=== PATIENT | male | born 1970 | race Caucasian/White ===

== ENCOUNTER 2017-08-08 15:08 | Observation (INO) | payer OTHER, SELFPAY ==
[~2017-08-08 15:08] MED LIST: ISOVUE-370 76%-LOCM 1 ML ONE
[2017-08-08 15:27] LABS: #Basophils 0.1 thou/uL (0.0-0.2); #Lymphocytes 2.1 thou/uL (1.20-3.40); #Monocytes 0.6 thou/uL (0.11-0.59); #Neutrophils 3.4 thou/uL (1.40-6.50); %Basophils 1.3 % (0.0-1.0); %Eosinophils 0.6 % (0.0-10.0); %Lymphocytes 34.1 % (21.0-51.0); %Monocytes 10.2 % (0.0-10.0); Hematocrit 50.7 % (42.0-52.0); Mean Platelet Volume 6.9 fL (7.4-10.4); Red Blood Cell (RBC) Count 5.64 mill/uL (4.70-6.10); White Blood Cell (WBC) Count 6.2 thou/uL (4.8-10.8)
[2017-08-08 15:50] LABS: ALT (SGPT) 26 U/L (8-55); AST (SGOT) 23 U/L (5-34); Alkaline Phosphatase 56 U/L (40-150); Anion Gap 16 mmol/L (10-20); BUN (Urea Nitrogen) 16 mg/dL (8.9-20.6); Bilirubin, Total 0.7 mg/dL (0.2-1.2); CK (CPK) 200 U/L (30-200); Calc. Creatinine Clearance 0 mL/min (70-130); Calcium 9.6 mg/dL (7.8-10.44); Carbon Dioxide 18 mmol/L (22-29); Chloride 108 mmol/L (98-107); Estimated GFR-MDRD 67; Globulin 3.1 g/dL (2.4-3.5); Protein, Total 7.4 g/dL (6.0-8.3)
[2017-08-08 15:54] LABS: Troponin I Less than 0.010 ng/mL (< 0.028)
--- NOTE | 2017-08-08 15:54 | RAD ---
AP VIEW CHEST 08/08/17 HISTORY: Chest pain. AP view chest obtained on 08/08/17. Comparison made to previous exam from 03/20/16. AP view chest is obtained. The lungs are well aerated. No evidence of active intrathoracic disease is seen. No evidence of effusions, pneumonia or pneumothorax seen. IMPRESSION: Unremarkable AP view chest. POS: [facility]
[2017-08-08 16:59] LABS: Bilirubin Negative (Negative); Blood, Urine Negative (Negative); Glucose, Urine (Dipstick) >=1000 mg/dL (Negative); Ketone, Urine Negative (Negative); Nitrite Negative (Negative); Protein, Urine (Dipstick) Negative (Neg-Trace); Urobilinogen 0.2 mg/dL (0.2-1.0)
[2017-08-08 17:04] LABS: Amphetamine Not Detected (NotDetected); Methadone Not Detected (NotDetected); Methamphetamine Not Detected (NotDetected)
[2017-08-08] MEDS ORDERED: Fentanyl 100 MCG/2 ML VIAL ONE (17:13)
--- NOTE | 2017-08-08 17:26 | CT ---
HISTORY: 47-year-old with history of chest pain radiating down arm. CONTRAST ENHANCED CTA CHEST: 08/08/17 2D and 3D reconstructed images performed on an independent 3D workstation. The lung parenchyma demonstrates patchy areas of densities in the posterior aspects bilaterally alaina tible with areas of patchy pneumonia in both lower lobes. No definite evidence of other pulmonary parenchymal masses seen. The mediastinum is unremarkable. The thoracic and abdominal aortas are unremarkable. No evidence of aortic dissection or aneurysm seen. T he SMA, celiac, JORY and renal arteries are patent. The mediastinum is unremarkable. The liver, spleen, gallbladder, pancreas, adrenal glands and kidneys are unremarkable. IMPRESSION: Patchy areas of bilateral lower lobe densities concerning for patchy areas of subtle bilateral lower lobe pneumonia. POS: [facility]
[2017-08-08 19:41] LABS: Troponin I 0.016 ng/mL (< 0.028)
[2017-08-08] MEDS ORDERED: HYDROcodone/Acetaminophen 5/325 mg Tablet PO PRN ×3 (20:20→20:26)
[2017-08-08] MEDS ORDERED: Acetaminophen 325 MG TAB PO PRN ×2 (20:20→20:26)
[2017-08-08] MEDS ORDERED: Aspirin/APAP/Caffeine Tab (Excedrin Migraine) PO PRN (20:26)
[2017-08-08] MEDS ORDERED: HumaLOG 300 UNITS/3 ML VIAL SC PRN (20:26)
[2017-08-08] MEDS ORDERED: Ondansetron ODT 4 MG TAB PO PRN (20:26)
[2017-08-08] MEDS ORDERED: HYDROcodone/Acetaminophen 10/325 mg Tablet PO PRN (20:26)
[2017-08-08] MEDS ORDERED: Zolpidem Tartrate 5 MG TAB PO PRN (20:26)
[2017-08-08] MEDS ORDERED: Dextrose 50% Abboject 50 ML SYRINGE SLOW IVP PRN (20:26)
[2017-08-08] MEDS ORDERED: Dextrose 5% in Water 1,000 ML IV PRN (20:26)
[2017-08-08] MEDS ORDERED: Enoxaparin Sodium 40 MG/0.4 ML SYRINGE SC SCH (20:30)
[2017-08-08] MEDS: Sodium Chloride 0.9% 1,000 ML IV SCH (20:54)
[2017-08-08] MEDS: Famotidine 20 MG TAB PO SCH (20:57)
[2017-08-08] MEDS: Nitroglycerin 2% Ointment 1 INCH/1 GM Packet TOP SCH (20:58)
[2017-08-08] MEDS: Metoprolol Tartrate 25 MG TAB PO SCH (20:58)
[2017-08-08] MEDS ORDERED: ADMIXTURE FEE SC SCH (21:00)
[2017-08-08] MEDS ORDERED: INSULIN DETEMIR SC SCH (21:00)
[2017-08-08] MEDS ORDERED: Atorvastatin Calcium 20 MG TAB PO SCH (21:00)
[2017-08-08 21:10] VITALS: BMI 40.2
--- NOTE | 2017-08-08 21:23 | HP ---
DATE OF ADMISSION: 08/08/2017 PRIMARY CARE PHYSICIAN: Dr. Fraser. TIME OF SERVICE: 1929. CHIEF COMPLAINT: Chest pain. HISTORY OF PRESENT ILLNESS: Mr. Stoner is a very pleasant 47-year-old white male with history of hyp ertension, diabetes, hyperlipidemia, obesity, hypertriglyceridemia, gout, and nephrolithiasis, who pr esents to the emergency department with 2-3 days of intermittent chest pain. States that just to the left of midline and over the left side of his chest, and describes as a pressure sensation or tight sensation, that ends with sharp shooting pain down his left arm. He has had a headache similar to mi graines in the past. Pain has been up and down with really no known exacerbating or alleviating fact ors initially. When further questioned, he said that he has been having increased pain when sitting down to eat with nausea and after eating. Denies any nausea or vomiting itself regularly, but he has had some sweats and nausea was associated directly with the chest pain. In the ER, he had negative labs and negative EKG. Lipase was ordered and was negative. He has had no known fevers and no known sick contacts. Denies any cough or sputum production. No shortness of breath normally. PAST MEDICAL HISTORY: 1. Hypertension. 2. Hyperlipidemia, cholesterol, and triglycerides. 3. Diabetes mellitus type 2, insulin-dependent. The patient was on Toujeo for the last several niall hs and was recently i.e., yesterday switched from Toujeo to Victoza plus Tresiba. 4. Obesity. 5. Nephrolithiasis. 6. Gout. PAST SURGICAL HISTORY: 1. Left knee repair, ligament 2006. 2. Eye flutter repair. 3. Bicep tendon repair [place] [address] Gonsalez. 4. He had a Meckel's diverticulum removal by Dr. Tinajero in 03/2015. HOME MEDICATIONS: 1. Atenolol 50 mg p.o. b.i.d. 2. Lipitor 20 mg p.o. at bedtime. 3. Fenofibrate 134 mg p.o. q.p.m. 4. Uloric 40 mg p.o. daily. 5. Prilosec 10 mg daily. 6. Motrin 800 mg p.o. t.i.d. p.r.n. 7. Forxiga 10 mg p.o. daily. 8. Ambien 10 mg p.o. at bedtime. 9. Victoza 0.6 mg subcutaneous daily supposed to go to 1.2 mg subcutaneous on 08/14/2017. 10. Tresiba 26 units subcutaneous at bedtime. ALLERGIES: NKDA. FAMILY HISTORY: Include hypertension. No premature coronary artery disease. No history of clotting or bleeding disorders. SOCIAL HISTORY: Negative for habits x3. He has never smoked. 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 No sick co ntacts. REVIEW OF SYSTEMS: A 10-point review of systems was performed, negative for all other systems except stated as per HPI. PHYSICAL EXAMINATION: VITAL SIGNS: Temperature 98.1, pulse 82, blood pressure is 126/97, respiratory rate 18, satting 98% on room air. GENERAL: He is awake. He is alert. He is oriented x3. He is well-developed, well-nourished white male, appears to be in no acute distress. HEENT: Normocephalic, atraumatic. Pupils equal and reactive bilaterally, mucous membranes are moist . There was no visible lesions or thrush. NECK: Supple with no lymphadenopathy, JVD, or thyromegaly. LUNGS: Clear. No wheezes, no rales or rhonchi. I do not hear any crackles. No murmurs. CARDIOVASCULAR: Normal S1, S2. No S3 or S4. No murmurs or rubs. ABDOMEN: Obese. It is nontender, distended but not tympanitic and not tight. There is no rebound, rigidity, or guarding. There is normoactive bowel sounds present in all 4 quadrants. EXTREMITIES: Shows no cyanosis, clubbing, no edema. SKIN: Warm, moist, and well perfused without rashes or lesions. MUSCULOSKELETAL: Normal to inspection. Large joints appear normal, he has no inflammation, no redne ss, no heat, and no palpable effusions. NEUROLOGIC: Cranial nerves II-XII are grossly intact. He has normal speech pattern, 5/5 strength. He has no focal, neurologic deficits. LABORATORY EVALUATION: CMP is normal. Creatinine 1.17, sodium 138, potassium 4.1. Liver functions normal. White count 6.2, hemoglobin 17.4, hematocrit 50.7, and platelet count of 255. CK-MB normal 2.4 and troponin I is less than 0.010. Recent labs from his outpatient showed triglycerides to be 16 00, hemoglobin A1c was 10, and total cholesterol was 235. I do not see the LDL. His lipase today wa s 28. RADIOGRAPHIC STUDIES: CT dissection protocol showed patchy bibasilar opacities consistent with edema or atypical early pneumonia. Chest x-ray showed no acute cardiopulmonary disease. ASSESSMENT AND PLAN: 1. Chest pain: We will rule out for acute cardiac disease. We will watch him on telemetry, serial cardiac biomarkers, nitro paste, beta ewelina, oxygen, if negative may consider proceeding with a str ess test in the morning. 2. Abnormal CT scan, patient has almost ground glass type opacity present in the bases. He has no c ough, no shortness of breath or fevers. He has had some sweats. He has not had any sick contacts. We would watch for signs of developing infection. 3. Hypertension: The patient is on atenolol, twice a day. At this time, we will hold his atenolol in favor of using metoprolol for rate control. We will have nitro paste on, it should be able to con trol blood pressure fine. 4. Diabetes mellitus, type 2. He is on Tresiba to substitute for Levemir while he is here, we will continue the Victoza if he has it, we will get a.c. and at bedtime Accu-Cheks while he is eating and use a mild sliding scale Humalog for correction. 5. Obesity. 6. Hyperlipidemia, cholesterol, and triglycerides on Lipitor and fenofibrate and we will continue. 7. History of nephrolithiasis. None currently. 8. History of gout. His uric acid on his outpatient testing a few days ago was normal. He has no f lare. Place the patient in observation with telemetry. We will watch him overnight. If everything is nega tive, likely he will be able to go home in the morning.
[2017-08-08 22:41] LABS: Troponin I Less than 0.010 ng/mL (< 0.028)
[2017-08-09 05:24] LABS: #Basophils 0.1 thou/uL (0.0-0.2); #Eosinphils 0.1 thou/uL (0.0-0.7); #Lymphocytes 2.7 thou/uL (1.20-3.40); #Monocytes 0.7 thou/uL (0.11-0.59); #Neutrophils 2.5 thou/uL (1.40-6.50); %Basophils 1.1 % (0.0-1.0); %Eosinophils 2.2 % (0.0-10.0); %Lymphocytes 44.4 % (21.0-51.0); %Monocytes 11.5 % (0.0-10.0); Hematocrit 46.2 % (42.0-52.0); Mean Platelet Volume 6.8 fL (7.4-10.4); Red Blood Cell (RBC) Count 5.07 mill/uL (4.70-6.10)
[2017-08-09 05:45] LABS: Anion Gap 14 mmol/L (10-20); BUN (Urea Nitrogen) 15 mg/dL (8.9-20.6); Calc. Creatinine Clearance 162 mL/min (70-130); Calcium 8.9 mg/dL (7.8-10.44); Carbon Dioxide 20 mmol/L (22-29); Chloride 107 mmol/L (98-107); Estimated GFR-MDRD 72; Magnesium 2.7 mg/dL (1.6-2.6)
[2017-08-09 05:49] LABS: Troponin I Less than 0.010 ng/mL (< 0.028)
[2017-08-09] MEDS: Nitroglycerin 2% Ointment 1 INCH/1 GM Packet TOP SCH (06:19)
[2017-08-09] MEDS: Sodium Chloride 0.9% 1,000 ML IV SCH (06:20)
[2017-08-09] MEDS ORDERED: Nitroglycerin 0.4 MG TAB (25 Tab Bottle) PO PRN (07:40)
[2017-08-09] MEDS ORDERED: Fenofibrate Nanocrystallized 145 MG TAB PO SCH (09:00)
[2017-08-09] MEDS ORDERED: ULORIC PO SCH (09:00)
[2017-08-09] MEDS ORDERED: FLU VACC QS2017-18 36 mo. & older 0.5 ML SYRINGE IM ONE (09:00)
[2017-08-09] MEDS ORDERED: Aspirin 325 mg Enteric Coated Tablet PO SCH (09:00)
[2017-08-09] MEDS ORDERED: Enoxaparin Sodium 40 MG/0.4 ML SYRINGE SC SCH (09:00)
[2017-08-09] MEDS: Metoprolol Tartrate 25 MG TAB PO SCH (11:43)
[2017-08-09] MEDS: Famotidine 20 MG TAB PO SCH (11:43)
--- NOTE | 2017-08-09 12:23 | RAD ---
CHEST 2 VIEWS: Date: 08/09/17 HISTORY: Pneumonia. COMPARISON: Chest 1 view dated 08/08/17. FINDINGS: The lungs are clear. No pneumothorax or effusion. Cardiac silhouette and mediastinal contours within normal limits. IMPRESSION: No acute intrathoracic abnormality. POS: [facility]
[2017-08-09 13:12] LABS: Troponin I Less than 0.010 ng/mL (< 0.028)
--- NOTE | 2017-08-09 14:14 | NM ---
NUCLEAR MEDICINE STRESS ONLY: HISTORY: Chest pain. Diabetes. Hypertension. Dyslipidemia. COMPARISON: None. TECHNIQUE: A stress only exam was performed after the intravenous administration of 30 and 9 mCi technetium-99m sestamibi. FINDINGS: There is normal wall motion. Normal uptake of radiotracer. IMPRESSION: Normal stress only exam with ejection fraction of 52%. POS: [facility]
[2017-08-09 16:22] VITALS: BP 133/80; TEMP 98.5
--- NOTE | 2017-08-10 09:46 | DIS ---
DATE OF DISCHARGE: 08/09/2017 DISCHARGE DISPOSITION: Home. FOLLOWUP: Follow up with primary care physician, Dr. Pastor, in 1 week. Follow up with Cardiology Clinic in 1 week. He was advised to call the office and schedule an appointment with one of the card iologists with Dr. Silverman's group. ALLERGIES: No known drug allergies. DISCHARGE MEDICATIONS: Aspirin 81 mg daily, Excedrin Migraine as needed, Tylenol as needed, atenolol 50 mg b.i.d., Lipitor 40 mg daily, Farxiga 10 mg daily, Uloric 40 mg daily, fenofibrate 134 mg daily , insulin degludec 26 units at bedtime, probiotic 1 tablet daily, Victoza 0.6 mg daily, sublingual ni troglycerin as needed, tramadol as needed, trazodone 100 mg at bedtime, Ambien 10 mg at bedtime. INPATIENT CONSULTANTS: None. The patient was seen and examined on the day of discharge. BRIEF HOSPITAL COURSE: Patient is a 47-year-old male with hypertension; diabetes mellitus, type 2; d yslipidemia; and morbid obesity with a BMI of 40.2; presented to the hospital with chest discomfort. Please refer to the history and physical dated 08/08/[address] Canchola for further details. The patient was admitted to the hospital with a diagnosis of chest discomfort, rule out acute coronar y syndrome. His serial cardiac enzymes were negative. He underwent exercise Cardiolite stress test that was negative for reversible ischemia. Ejection fraction was in the normal range without any wal l motion abnormality. He was advised to follow up with Cardiology as outpatient if he has recurrence of chest pain. He was given a prescription for sublingual nitroglycerin. Lifestyle modification wa s extensively emphasized. He will also benefit from sleep study as outpatient. FINAL DIAGNOSES: 1. Chest discomfort, acute coronary artery syndrome ruled out. 2. Negative Cardiolite stress test. 3. Questionable ground-glass opacity at the lung bases on the CT scan. Primary care physician is ad vised to follow. 4. Hypertension. 5. Diabetes mellitus, type 2. 6. Dyslipidemia. 7. Obesity. 8. Gout. 9. History of nephrolithiasis. 10. Chronic kidney disease, stage 2. 11. Morbid obesity with a BMI 40.2. Plan of care was discussed with the patient and the family in detail. They stated understanding.
== END 2017-08-09 18:50 | disposition home or self-care (01) ==
LOC: ERS 15:08 → 2SW 18:58
PROVIDERS: ADMIT Internal Medicine Infectious Disease; ATTEND Internal Medicine Infectious Disease
DX: R07.89 Other chest pain (principal); E11.22 Type 2 diabetes mellitus with diabetic chronic kidney disease; I12.9 Hypertensive chronic kidney disease with stage 1 through stage 4 chronic kidney disease, or unspecified chronic kidney disease; N18.2 Chronic kidney disease, stage 2 (mild); E78.5 Hyperlipidemia, unspecified; M10.9 Gout, unspecified; N20.0 Calculus of kidney; R91.8 Other nonspecific abnormal finding of lung field; E66.01 Morbid (severe) obesity due to excess calories; Z68.41 Body mass index [BMI] 40.0-44.9, adult; Z79.899 Other long term (current) drug therapy; Z98.890 Other specified postprocedural states
CPT/HCPCS: 36415; 36416; 71010; 71020; 71275; 78452; 80048; 80053; 80306; 81003; 82553; 83690; 83735; 84484; 85025; 93005; 93017; 94760; 96361; 96372; 96374; A9500; G0378; J1650; J1815; J3010

== ENCOUNTER 2018-03-13 14:29 | Emergency (ER) | payer BC, OTHER, SELFPAY ==
--- NOTE | 2018-03-13 15:43 | RAD ---
TWO VIEWS RIGHT TIBIA AND FIBULA: DATE: 03/13/18. HISTORY: Distal right lower extremity pain. FINDINGS: There is no evidence of a fracture or dislocation involving the right tibia or fibula. On the fronta l projection, there is a small lucency seen overlying the lateral subcutaneous tissues at the distal fibular diaphysis. Lucency related to subcutaneous gas could not be entirely excluded, but this coul d be artifactual. Normal findings. IMPRESSION: 1. No acute osseous abnormality of the right tibia or fibula. 2. Lucency overlying the subcutaneous soft tissues lateral to the distal right fibula. This may be artifactual, although focus of subcutaneous gas cannot be excluded, of uncertain etiology. POS: [facility]
[2018-03-13 16:36] LABS: #Basophils 0.1 thou/uL (0.0-0.2); #Eosinphils 0.1 thou/uL (0.0-0.7); #Lymphocytes 2.1 thou/uL (1.20-3.40); #Monocytes 0.7 thou/uL (0.11-0.59); #Neutrophils 3.6 thou/uL (1.40-6.50); %Basophils 1.5 % (0.0-1.0); %Eosinophils 1.3 % (0.0-10.0); %Lymphocytes 32.1 % (21.0-51.0); %Monocytes 10.3 % (0.0-10.0); %Neutrophils 54.8 % (42.0-75.0); Hemoglobin 17.1 g/dL (14.0-18.0); Mean Corpuscular HGB CONC 34.3 g/dL (32.0-36.0); Mean Corpuscular Hemoglobin 31.5 pg (27.0-31.0); Mean Corpuscular Volume 91.8 fL (78.0-98.0); Mean Platelet Volume 6.5 fL (7.4-10.4); Platelet Count 271 thou/uL (130-400); RBC Distribution Width 12.9 % (11.5-14.5); Red Blood Cell (RBC) Count 5.43 mill/uL (4.70-6.10); White Blood Cell (WBC) Count 6.5 thou/uL (4.8-10.8)
[2018-03-13 16:57] LABS: ALT (SGPT) 22 U/L (8-55); AST (SGOT) 19 U/L (5-34); Albumin 4.6 g/dL (3.5-5.0); Alkaline Phosphatase 51 U/L (40-150); Anion Gap 14 mmol/L (10-20); BUN (Urea Nitrogen) 14 mg/dL (8.9-20.6); Bilirubin, Total 0.5 mg/dL (0.2-1.2); Calc. Creatinine Clearance 0 mL/min (70-130); Calcium 9.6 mg/dL (7.8-10.44); Carbon Dioxide 18 mmol/L (22-29); Chloride 108 mmol/L (98-107); Estimated GFR-MDRD 59; Globulin 2.8 g/dL (2.4-3.5); Glucose 122 mg/dL (70-105); Potassium 4.2 mmol/L (3.5-5.1); Protein, Total 7.4 g/dL (6.0-8.3); Sodium 136 mmol/L (136-145)
[2018-03-13] MEDS ORDERED: traMADol HCl 50 MG TAB ONE (18:05)
[2018-03-13] MEDS ORDERED: Gabapentin 300 MG CAP PO SCH (18:30)
[2018-03-13] MEDS ORDERED: Bacitracin Zinc 1 Packet ONE (18:46)
== END 2018-03-13 18:55 | disposition home or self-care (01) ==
LOC: ERS 14:29
DX: M79.604 Pain in right leg (principal); E78.5 Hyperlipidemia, unspecified; I10 Essential (primary) hypertension; E11.9 Type 2 diabetes mellitus without complications; M06.9 Rheumatoid arthritis, unspecified; F32.9 Major depressive disorder, single episode, unspecified; F41.9 Anxiety disorder, unspecified; E66.9 Obesity, unspecified; Z87.442 Personal history of urinary calculi
CPT/HCPCS: 36415; 80053; 83605; 85025; 87040; 87070; 87205

== ENCOUNTER 2018-03-18 13:46 | Outpatient (CLI) | payer BC ==
[2018-03-18] MEDS ORDERED: Sodium Chloride 0.9% 15 ML NEB ONE (16:36)
[2018-03-18] MEDS ORDERED: Lidocaine 2% Jelly 5 ML TUBE ONE (16:36)
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
== END 2018-03-18 13:47 | disposition home or self-care (01) ==
LOC: WCC 13:46
PROVIDERS: ATTEND Family Medicine
DX: S81.801A Unspecified open wound, right lower leg, initial encounter (principal); E11.9 Type 2 diabetes mellitus without complications; N20.0 Calculus of kidney; M10.9 Gout, unspecified; I10 Essential (primary) hypertension; Z98.890 Other specified postprocedural states
CPT/HCPCS: 11042; 36416; 99203; A4218; G0463

== ENCOUNTER 2018-03-25 14:41 | Outpatient (CLI) | payer BC ==
[~2018-03-25 14:41] MED LIST changes: -ISOVUE-370 76%-LOCM 1 ML ONE; +Lidocaine 2% Jelly 5 ML TUBE ONE; +Sodium Chloride 0.9% 15 ML NEB ONE
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
== END 2018-03-25 14:42 | disposition home or self-care (01) ==
LOC: WCC 14:41
PROVIDERS: ATTEND Family Medicine
DX: T81.89XD Other complications of procedures, not elsewhere classified, subsequent encounter (principal); E11.9 Type 2 diabetes mellitus without complications; M10.9 Gout, unspecified; K80.20 Calculus of gallbladder without cholecystitis without obstruction; I10 Essential (primary) hypertension
CPT/HCPCS: 11042; A4218

== ENCOUNTER 2018-03-25 16:15 | Outpatient (CLI) | payer BC ==
--- NOTE | 2018-03-25 17:08 | RAD ---
RIGHT ANKLE THREE VIEWS: 03/25/18 HISTORY: Right ankle pain. FINDINGS: Ankle mortise and talar dome are intact. Moderate osteophytosis. Pes planus on the lateral view. Deg enerative changes of the hindfoot and midfoot are visible. Plantar enthesophyte at the inferior aspec t of the calcaneus. IMPRESSION: Osteoarthritic changes of the ankle and hindfoot are pronounced for the patient's age. Plantar heel spur. POS: [facility]
== END 2018-03-25 16:16 | disposition home or self-care (01) ==
LOC: RAD 16:15
PROVIDERS: ATTEND Family Medicine
DX: M25.471 Effusion, right ankle (principal); M25.571 Pain in right ankle and joints of right foot; M19.071 Primary osteoarthritis, right ankle and foot; M77.31 Calcaneal spur, right foot

== ENCOUNTER 2019-03-31 12:20 | Observation (INO) | payer BC, SELFPAY ==
[2019-03-31] MEDS ORDERED: Morphine 4 MG/ML VIAL ONE (12:50)
[2019-03-31] MEDS ORDERED: Ondansetron PF 4 MG/2 ML Vial ONE (12:50)
[2019-03-31 13:03] LABS: #Eosinphils 0.1 thou/uL (0.0-0.7); #Lymphocytes 1.9 thou/uL (1.20-3.40); #Monocytes 0.8 thou/uL (0.11-0.59); #Neutrophils 4.2 thou/uL (1.40-6.50); %Basophils 0.7 % (0.0-1.0); %Eosinophils 1.3 % (0.0-10.0); %Lymphocytes 26.7 % (21.0-51.0); %Monocytes 11.1 % (0.0-10.0); %Neutrophils 60.1 % (42.0-75.0); Hemoglobin 15.6 g/dL (14.0-18.0); Mean Corpuscular HGB CONC 34.2 g/dL (32.0-36.0); Mean Corpuscular Hemoglobin 31.6 pg (27.0-31.0); Mean Corpuscular Volume 92.4 fL (78.0-98.0); Mean Platelet Volume 7.2 fL (7.4-10.4); Platelet Count 241 thou/uL (130-400); RBC Distribution Width 12.7 % (11.5-14.5); Red Blood Cell (RBC) Count 4.96 mill/uL (4.70-6.10)
[2019-03-31 13:27] LABS: ALT (SGPT) 26 U/L (8-55); AST (SGOT) 20 U/L (5-34); Albumin 4.2 g/dL (3.5-5.0); Alkaline Phosphatase 46 U/L (40-150); Anion Gap 12 mmol/L (10-20); BUN (Urea Nitrogen) 16 mg/dL (8.9-20.6); Bilirubin, Total 0.6 mg/dL (0.2-1.2); Calc. Creatinine Clearance 0 mL/min (70-130); Calcium 9.7 mg/dL (7.8-10.44); Carbon Dioxide 21 mmol/L (22-29); Chloride 109 mmol/L (98-107); Estimated GFR-MDRD 79; Globulin 2.4 g/dL (2.4-3.5); Glucose 137 mg/dL (70-105); Lipase 24 U/L (8-78); Potassium 3.9 mmol/L (3.5-5.1); Protein, Total 6.6 g/dL (6.0-8.3); Sodium 138 mmol/L (136-145)
[2019-03-31] MEDS ORDERED: Fentanyl 100 MCG/2 ML VIAL ONE (13:32)
--- NOTE | 2019-03-31 13:48 | RAD ---
CHEST ONE VIEW: 03/31/19 HISTORY: Chest pain. Headache. COMPARISON: 08/09/17. FINDINGS: The cardiac silhouette is magnified by projection. Pulmonary vasculature accentuated by shallow inspi ration. Mediastinum is midline. No confluent air space consolidation or evidence of pneumothorax. Car diac monitor leads overlie the chest. IMPRESSION: No active cardiopulmonary abnormalities are demonstrated. POS: [facility]
--- NOTE | 2019-03-31 14:13 | CT ---
CT HEAD NONCONTRAST: HISTORY: Headache. FINDINGS: No comparison. There is no evidence of acute intracranial hemorrhage or infarct. The ventricles kourtney ear normal in size, shape, and position. There is no mass effect or shift of midline structures. La rge mucous retention cyst predominantly fills the partially visualized left maxillary sinus. Other v isualized paranasal sinuses remain well aerated. IMPRESSION: No acute intracranial abnormalities are demonstrated. POS: [facility]
[2019-03-31 15:05] LABS: Color Of CSF Supernatant COLORLESS (Colorless); Unspun CSF Color COLORLESS (Colorless)
[2019-03-31] MEDS ORDERED: diphenhydrAMINE 50 MG/ML VIAL ONE (15:05)
[2019-03-31] MEDS ORDERED: Metoclopramide HCl 10 MG/2 ML VIAL ONE (15:05)
[2019-03-31 15:07] LABS: CSF Source CSF; Clarity Clear (Clear); RBC Count - Manual 12 /cumm (None Seen); Tube # 2; Tube # 4; WBC/NonHematics Count - Manual 1 /cumm (0-5)
[2019-03-31 15:19] LABS: CSF Source CSF; Clarity Hazy (Clear); Tube # 1; WBC/NonHematics Count - Manual 0 /cumm (0-5)
[2019-03-31 15:20] LABS: CSF, Glucose 78 mg/dl (40-70); CSF, Protein 62 mg/dL (15-40); RBC Count - Manual 307 /cumm (None Seen)
[2019-03-31 16:14] LABS: Troponin I 0.014 ng/mL (< 0.028)
[2019-03-31] MEDS ORDERED: Ondansetron ODT 4 MG TAB SL PRN (18:07)
[2019-03-31] MEDS ORDERED: Ondansetron PF 4 MG/2 ML Vial IVP PRN (18:07)
[2019-03-31 18:09] VITALS: BMI 38.6
[2019-03-31] MEDS ORDERED: Acetaminophen 325 MG TAB PO PRN (18:24)
[2019-03-31] MEDS ORDERED: Ondansetron ODT 4 MG TAB PO PRN (18:24)
[2019-03-31 19:06] LABS: Troponin I Less than 0.010 ng/mL (< 0.028)
--- NOTE | 2019-03-31 19:12 | PDOC.FPRHP ---
- History of Present Illness Chief Complaint: Headache History of Present Illness: 49 yo M w/PHx of HTN and DM2, now off of meds dt weight loss, here with complaint of progressively worsening headache that started 2-3 weeks ago. For the past 2 days pain has been 10/10. Pain involves his entire head. He has no hx of similar symptoms in the past. He also notes that for the same period of time his BP has been spiking to over 200/100. He was seen in clinic of PCP in [place] 2 days ago and started on Amlodipine/Benazepril. Today due to continuation of his headache with no relief and continued elevated BP he presented to the ED after taking 0.1 of a family member's clonidine. PCP Out of Town in [place]. Pt does not remember name. ED Course: In ED CT head was negative. Pt was given 8mg Morphine and 100mcg Fentanyl without improvement. LP performed in ED, initial results reassuring - Allergies/Adverse Reactions Allergies Allergy/AdvReac Type Severity Reaction Status Date / Time No Known Drug Allergies Allergy Verified 03/31/19 21:36 - Home Medications Medication Instructions Recorded Confirmed Type Febuxostat [Uloric] 40 mg PO Q2DAYS 12/07/14 03/31/19 History traZODone HCl [Trazodone HCl] 100 mg PO HS 08/08/17 03/31/19 History Aspirin [Aspirin EC] 81 mg PO DAILY #30 tablet. 08/09/17 03/31/19 Rx Amlodipine Besylate/Benazepril 1 cap PO DAILY 03/31/19 03/31/19 History [amLODIPine Besylate/Benazepril] Omeprazole Magnesium [Prilosec] 10 mg PO DAILY 03/31/19 03/31/19 History Rosuvastatin [Crestor] 10 mg PO DAILY 03/31/19 03/31/19 History Temazepam [Restoril] 15 mg PO HS 03/31/19 03/31/19 History - History PMHx: DM2 HTN HLD PSHx: Multiple ortho surgeries FHx: HTN Social: Denies etoh, tobacco, recreational drugs - Review of Systems General: denies: fever/chills, weight/appetite/sleep changes, night sweats Eyes: denies: eye pain, vision changes ENT: denies: nasal congestion, rhinorrhea Respiratory: denies: congestion, shortness of breath, exercise intolerance Cardiovascular: reports: chest pain. denies: palpitation, edema Gastrointestinal: denies: nausea, vomiting, diarrhea, constipation, abdominal pain Skin: denies: rashes, lesions Musculoskeletal: denies: pain, tenderness Neurological: reports: other (complains of headache). denies: numbness, syncope , seizure, weakness Psychological: denies: anxiety, depression - Vital signs BP: 136/83 HR: 62 RR: 18 Tmax: 98.4 Pox: 09% on RA Wt: 132 kg - Physical Exam Constitutional: NAD, awake, alert and oriented, well developed HEENT: normocephalic and atraumatic, EOMI, no scleral icterus, grossly normal vision, grossly normal hearing, MMM Neck: supple, trachea midline, no bruits Chest: no-tender to palpation, no lesions Heart: RRR, normal S1/S2, no murmurs/rubs/gallops, no edema Lungs: CTAB, no respiratory distress, good air movement, no rales/rhonchi, no wheezing Abdomen: soft, non-tender, bowel sounds present Musculoskeletal: normal structure, normal tone, ROM grossly normal Neurological: no focal deficit, CN II-XII intact, normal sensation, DTRs 2+ Skin: no rash/lesions, good turgor Heme/Lymphatic: no unusual bruising or bleeding Psychiatric: normal mood and affect, good judgment and insight FMR H&P: Results - Labs Result Diagrams: 03/31/19 12:46 03/31/19 12:46 Lab results: WBC 7.0 thou/uL (4.8-10.8) 03/31/19 12:46 Hgb 15.6 g/dL (14.0-18.0) 03/31/19 12:46 Hct 45.8 % (42.0-52.0) 03/31/19 12:46 MCV 92.4 fL (78.0-98.0) 03/31/19 12:46 Plt Count 241 thou/uL (130-400) 03/31/19 12:46 Neutrophils % 60.1 % (42.0-75.0) 03/31/19 12:46 Sodium 138 mmol/L (136-145) 03/31/19 12:46 Potassium 3.9 mmol/L (3.5-5.1) 03/31/19 12:46 Chloride 109 mmol/L (98-107) H 03/31/19 12:46 Carbon Dioxide 21 mmol/L (22-29) L 03/31/19 12:46 BUN 16 mg/dL (8.9-20.6) 03/31/19 12:46 Creatinine 1.00 mg/dL (0.7-1.3) 03/31/19 12:46 Glucose 137 mg/dL (70-105) H 03/31/19 12:46 Calcium 9.7 mg/dL (7.8-10.44) 03/31/19 12:46 Total Bilirubin 0.6 mg/dL (0.2-1.2) 03/31/19 12:46 AST 20 U/L (5-34) 03/31/19 12:46 ALT 26 U/L (8-55) 03/31/19 12:46 Alkaline Phosphatase 46 U/L (40-150) 03/31/19 12:46 B-Natriuretic Peptide 48.2 pg/mL (0-100) 03/31/19 12:46 Serum Total Protein 6.6 g/dL (6.0-8.3) 03/31/19 12:46 Albumin 4.2 g/dL (3.5-5.0) 03/31/19 12:46 Lipase 24 U/L (8-78) 03/31/19 12:46 - EKG Interpretation EKG: NSR, pulse 60, No ST or T wave changes - Radiology Interpretation CT scan - head Status: report reviewed by me (No acute process) FMR H&P: A/P - Problem List (1) Hypertensive urgency Current Visit: Yes Status: Acute Code(s): I16.0 - HYPERTENSIVE URGENCY (2) Headache Current Visit: Yes Status: Acute Code(s): R51 - HEADACHE Qualifiers: Headache type: unspecified Headache chronicity pattern: acute headache Intractability: intractable Qualified Code(s): R51 - Headache (3) DM (diabetes mellitus), type 2, uncontrolled Current Visit: No Status: Chronic Code(s): E11.65 - TYPE 2 DIABETES MELLITUS WITH HYPERGLYCEMIA Qualifiers: Glycemic state: with hyperglycemia Qualified Code(s): E11.65 - Type 2 diabetes mellitus with hyperglycemia (4) Gout Current Visit: No Status: Chronic Code(s): M10.9 - GOUT, UNSPECIFIED (5) HLD (hyperlipidemia) Current Visit: No Status: Chronic Code(s): E78.5 - HYPERLIPIDEMIA, UNSPECIFIED Qualifiers: Hyperlipidemia type: unspecified Qualified Code(s): E78.5 - Hyperlipidemia , unspecified (6) HTN (hypertension) Current Visit: No Status: Chronic Code(s): I10 - ESSENTIAL (PRIMARY) HYPERTENSION Qualifiers: Hypertension type: unspecified Qualified Code(s): I10 - Essential (primary ) hypertension - Plan 1. Hypertensive urgency - currently controlled with no repeat in elevated pressures. Will obs over night. - PRN antihypertensives. - continue home meds 2. Headache - wide ddx at this time to include malignancy, infectious, inflammatory, vascular, and endocrine, and migraine etiology - MRI in am - urine metanephrines - CSF cultures pending, no sign of bleed at this time 3. Atypical chest pain - resolved. Trops negative x3 4. HTN - continue home meds 5. HLD - continue statin 6. DM2 - diet controlled - Low carb diet Disposition/LOS: Stable. Likely LOS 24-48 hours FMR H&P: Upper Level - Plan Date/Time: 03/31/19 1906 I, [], have evaluated this patient and agree with findings/plan as outlined by campus recruiting internship resident. Pertinent changes/additions are listed here. Addendum - Attending - Attending Attestation Date/Time: 03/31/19 [id number] I personally evaluated the patient and discussed the management with Dr. Chino I agree with the History, Examination, Assessment and Plan documented above with any addition or exceptions noted below. 49 yo male with history of diet controlled DM, HTN, obesity, gout, GERD, insomnia, untreated EULALIO presents to ER for intractable headache and elevated BP. Patient reports a 3 wk history of progressive headache. Denies associated symptoms but when questioned directed reported some photophobia. Reported this as mild and has only noticed due to questioning. Pain worsens with left to right movement of head and bending over with head dependant. Unable to function throughout the day. Unable to sleep at night. Significant over the last 2 days. Unable to achieve full relief of pain. Has been continuous. Generalized pain. Unable to localize. Unable to qualify -- "all types, it just won't stop hurting. " Patient with significant pain tolerance reported by . States he is very stubborn and dose not like going to the Dr. No prior hx of headaches that have persistent. Reports maybe 5 to 6 headaches during his life. He states, "I just don't get headaches. So this is just really odd for it to be this bad." Received multiple medications in the ER. Pain has been unrelenting 10/10 and after medications has only noted improvement to 8/10. Patient has also noticed an increase in blood pressure. Was restarted on medication recently. Denies side effects. Has been seen by PCP for headache. Risk factors for other etiologies include travel outside country to different locations. Last travel was 2007. No illness related to travel reported by patient. 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 No new or recently reported toxin exposures/environmental exposure. No recent illnesses or sick contacts. Denies autoimmune dz. No family history of significant dzs. Hx of possible concussion syndrome 1. Intractable headache: Unsure etiology at this time. Extensive workup pending at this time. CSF studies pending. Inflammatory studies pending. Imaging reviewed and no concerns. Will treat as intractable migraine but will hold on use of vasoactive agents due to risk for underlying CV dz. MRI in AM. Needs EULALIO treatment. Monitor BP. Kareem
[2019-03-31] MEDS ORDERED: diphenhydrAMINE 50 MG/ML VIAL IVP SCH (20:00)
[2019-03-31] MEDS ORDERED: Prochlorperazine Edisylate 10 MG in Sodium Chloride 0.9% 50 ML IVPB SCH (20:00)
[2019-03-31] MEDS ORDERED: Ketorolac Tromethamine 30 MG/ML VIAL IVP SCH (20:00)
[2019-03-31] MEDS ORDERED: Sodium Chloride 0.9% 1,000 ML IV SCH (22:00)
--- NOTE | 2019-04-01 06:18 | PDOC.FM ---
- Subjective Subjective: Patient doing well this morning. States his headache has improved since taking a "concoction" of pain meds & O2 given by the night team. Still has pain 2-3 out of 10. Denies vision changes, eye pain, tinnitus. Patient's blood pressure has remained <140/<90 throughout the night. Otherwise denies complaints this morning. Patient's relays further history that for past three weeks patient has been using a machine to hang upside down. Patient was instructed to do this by his ortho physician in [place] for relief of back pain from "bulging discs". Pt's headache first started when he started hanging upside down. About 1-1.5 weeks ago right after hanging he stood up and had an excrutiating headache. This was relieved after he slept but still had a lingering headache that then progressively got a litte worse each day until yesterday when pain was intolerable. He has continued to hang upside down and attempted to hang upside down the past two days but was unable to due to the headache pain. - Objective Vital Signs & Weight: Vital Signs (12 hours) Pulse Resp BP Pulse Ox 04/01/19 03:42 57 L 15 109/68 95 Weight Weight 132.857 kg I&O: 03/30/19 03/31/19 04/01/19 06:59 06:59 06:59 Intake Total 1500 Balance 1500 Result Diagrams: 03/31/19 12:46 03/31/19 12:46 Phys Exam - Physical Examination Constitutional: NAD HEENT: moist MMs, sclera anicteric EOMI. CN II-XII intact. Neck: no JVD, supple, full ROM Respiratory: no wheezing, no rales, no rhonchi, clear to auscultation bilateral Cardiovascular: RRR, no significant murmur Gastrointestinal: soft, non-tender, positive bowel sounds Musculoskeletal: no edema, pulses present Neurological: normal sensation, moves all 4 limbs No focal deficits. Strength 5/5 in extremities. Psychiatric: normal affect, A&O x 3 Skin: no rash, normal turgor Dx/Plan (1) Headache Code(s): R51 - HEADACHE Status: Acute Qualifiers: Headache type: unspecified Headache chronicity pattern: acute headache Intractability: intractable Qualified Code(s): R51 - Headache (2) Hypertensive urgency Code(s): I16.0 - HYPERTENSIVE URGENCY Status: Acute (3) Chest pain Code(s): R07.9 - CHEST PAIN, UNSPECIFIED Status: Acute Qualifiers: Chest pain type: other chest pain Qualified Code(s): R07.89 - Other chest pain; R07.8 - Other chest pain (4) DM (diabetes mellitus), type 2, uncontrolled Code(s): E11.65 - TYPE 2 DIABETES MELLITUS WITH HYPERGLYCEMIA Status: Chronic Qualifiers: Glycemic state: with hyperglycemia Qualified Code(s): E11.65 - Type 2 diabetes mellitus with hyperglycemia (5) HLD (hyperlipidemia) Code(s): E78.5 - HYPERLIPIDEMIA, UNSPECIFIED Status: Chronic Qualifiers: Hyperlipidemia type: unspecified Qualified Code(s): E78.5 - Hyperlipidemia , unspecified (6) HTN (hypertension) Code(s): I10 - ESSENTIAL (PRIMARY) HYPERTENSION Status: Chronic Qualifiers: Hypertension type: unspecified Qualified Code(s): I10 - Essential (primary ) hypertension - Plan Plan: 49 yo Male with PMHx of HTN, HLD, T2DM admitted for hypertensive urgency and headache: 1. Hypertensive urgency - currently controlled, no elevated pressures overnight - PRN antihypertensives. - continue home meds of Lotrel 5/10 - fractionated urine metanephrines ordered 2. Headache - wide ddx at this time to include malignancy, infectious, inflammatory, vascular, and endocrine, and migraine etiology - MRI in am - urine metanephrines ordered - CSF cultures pending, no sign of bleed, add viral cultures to CSF studies -patient given concoction of Prochlorperazine, Toradol, & Benadryl along with O2 by the night team and says this cleared his headache 3. Atypical chest pain - resolved. Trops negative x3 4. HTN - continue home meds 5. HLD - continue statin 6. DM2 - diet controlled - Low carb diet Dispo: Stable. Admitted to obs with anticipated LOS 24-48 hours Addendum - Attending - Attending Attestation Date/Time: 04/01/19 6701 I personally evaluated the patient and discussed the management with Dr. Glass. I agree with the History, Examination, Assessment and Plan documented above with any addition or exceptions noted below. Patient here for unexplained headaches that began after spending prolonged time on inversion table for his chronic back pain. He is going for MRI today. Developed what sounds like spinal headache this morning when ambulating. His pain was overall well controlled prior to that time. MRI results pending and further mgmt per that result though anticipate he will be able to discharge today or tomorrow.
[2019-04-01] MEDS ORDERED: Amlodipine 5 mg/Benazepril 10 mg CAP PO SCH (09:00)
[2019-04-01] MEDS ORDERED: Rosuvastatin 10 MG TAB PO SCH (09:00)
[2019-04-01] MEDS ORDERED: Febuxostat 40 MG TAB PO SCH (09:00)
--- NOTE | 2019-04-01 10:32 | MRI ---
Exam: Brain MRI with and without contrast HISTORY: Intractable headache COMPARISON: None FINDINGS: Gradient echo sequence: No hemorrhage Calvarium: Appropriate T1 marrow signal intensity Midline brain parenchyma: Unremarkable Cerebrum:No parenchymal mass, mass effect or midline shift. Brain volume, age-appropriate. Cortical g ray-white white matter differentiation is preserved. No significant T2 or FLAIR white matter hyperintensities. Ventricles: No evidence of hydrocephalus. Sinuses and mastoid air cells: Large mucous retention cyst occupying the majority of the left maxilla ry sinus. Mild focal thickening involving the right maxillary sinus, bilateral ethmoid air cells and to a lesser extent sphenoid sinuses. Partial opacification of the posterior right. Diffusion: Central arterial flow is maintained. Absent restricted diffusion. Postcontrast images: No pathologic enhancement of the brain parenchyma. IMPRESSION: 1. No pathologic enhancement the brain parenchyma. 2. Brain volume, age-appropriate. 3. Absent restricted diffusion. No acute infarct. No significant white matter hyperintensities on T2 or FLAIR sequence. 3. Mucous cyst involving the left maxillary sinus.
[2019-04-01] MEDS: diphenhydrAMINE 25 MG CAP PO PRN ×2 (10:36→16:42)
[2019-04-01] MEDS: Metoclopramide HCl 10 MG TAB PO PRN ×3 (10:36→16:46)
[2019-04-01] MEDS ORDERED: Ketorolac Tromethamine 30 MG/ML VIAL IVP PRN (18:51)
[2019-04-01] MEDS ORDERED: Dexamethasone 4 mg/ml Vial SLOW IVP SCH (19:00)
[2019-04-01] MEDS ORDERED: Metoclopramide HCl 10 MG/2 ML VIAL IVP SCH (20:00)
[2019-04-01] MEDS ORDERED: Dihydroergotamine Mesylate 1 MG/ML AMP SLOW IVP SCH (20:00)
[2019-04-01 20:06] VITALS: BP 140/80; TEMP 97.6
[2019-04-01] MEDS ORDERED: traZODone HCl 50 MG TAB PO SCH (21:00)
[2019-04-01] MEDS ORDERED: Temazepam 15 MG CAP PO SCH (21:00)
--- NOTE | 2019-04-01 21:28 | CON ---
DATE OF CONSULTATION: 04/01/2019 IMPRESSION: Vascular headache, likely induced by heavy inversion table. PLAN: Alonzo protocol. HISTORY OF PRESENT ILLNESS: Mr. Stoner is a 49-year-old man who has been treating himself for some lower back pain with an inversion table. While he was inverted, he suddenly developed a fairly intense headache that he felt like his head was going to explode. He got out of the table, but unfortunately the headache did not improve. He has continued to have some variable throbbing headache that is fairly diffuse. He had an MRI of the brain and spinal tap, which were unremarkable other than being a bloody tap. His vital signs have been stable and he has not been hypertensive. He has never had a persistent headache like this before. It has been going on for now week and a half. He is without any complaints of focal abnormalities or vision disturbance. PAST MEDICAL HISTORY: Otherwise negative. ALLERGIES: NONE. SOCIAL HISTORY: He is . No tobacco or drug use. FAMILY HISTORY: Noncontributory. REVIEW OF SYSTEMS: Ten system review of systems is otherwise negative. PHYSICAL EXAMINATION: GENERAL: He is large, overweight, middle-aged man, in no apparent distress. VITAL SIGNS: Stable. He has been afebrile. HEENT: Pupils are equal and reactive. Conjunctivae clear. Oropharynx clear. NECK: Supple. EXTREMITIES: No cyanosis or edema. NEUROLOGIC: Alert and appropriate. His speech is fluent and clear. His exam is nonfocal. SUMMARY: Suspect that the headache was brought on by increased intracranial pressure due to the inversion. It has apparently set the stage for to continue and hopefully can break the cycle with some steroids and Alonzo protocol. Job ID: [id number]
[2019-04-02] MEDS ORDERED: Febuxostat 40 MG TAB PO SCH (09:00)
--- NOTE | 2019-04-02 13:03 | DIS ---
DATE OF ADMISSION: 03/31/2019 DATE OF DISCHARGE: 04/01/2019 CONSULTS: Neurology, Dr. Chiki Chaves. PROCEDURES: MRI, normal. PRIMARY DIAGNOSIS: Intractable headache. SECONDARY DIAGNOSES: 1. Hypertensive urgency. 2. Atypical chest pain. 3. Hypertension. 4. Hyperlipidemia. 5. Diabetes, type 2. DISCHARGE MEDICATIONS: None. DISCONTINUED MEDICATIONS: 1. Tylenol 650 mg p.o. q.4 hours p.r.n. for pain. 2. Dexamethasone 4 mg slow IVP x1. 3. D.H.E 45/0.5 mg slow IVP x4 doses, given one dose at 8 p.m. on 04/01. 4. Benadryl 50 mg x1. 5. Fentanyl 100 mcg given x1. 6. Ketorolac 30 mg IVP q.6 hours for pain p.r.n. 7. Morphine 4 mg x1. 8. Zofran 4 mg p.o. and IVP q.6 hours p.r.n. for nausea. HISTORY OF PRESENT ILLNESS/HOSPITAL COURSE: The patient originally presented to the [facility] room on March 31, 2019 with complaint of progressively worsening headache that started 2 to 3 weeks ago. Over the past 2 days, the pain has been a 10/10. The pain involves his entire head. He has no history of similar symptoms in the past. He also notes for the same period of time, his blood pressure has been spiking to over 200/100. He was seen in the clinic with his [facility] PCP 2 days prior and started on amlodipine/benazepril. Today, due to continuation of his headache with no relief and continued elevated blood pressure, he presented to the ED after taking 0.1 mg clonidine with the family members. In the ED, his CT head was negative. The patient was given 8 mg of morphine and 100 mcg of fentanyl without improvement and LP was performed in the emergency department with initial results reassuring. When the patient arrived to the floor, he related further history that he had been hanging upside down for 3 weeks to relieve pain from a disk bulge in his back. He was instructed to do this by his orthopedic physician in [place]. The patient states the headache started when he started to hang upside down, but he continued to try to hang upside down, anyway thinking the headache would go away. The patient saw Dr. Chaves, Neurology on April 01, 2019. He also believed that the headache was due to hanging upside down and hoped to break the cycle with some steroids and Alonzo protocol. However, on the evening of April 01, 2019, the patient stated that he wanted to leave AMA. The patient left at 1:00 a.m. on April 02, 2019 before resident physicians could evaluate the patient further. DISPOSITION: Stable. DISCHARGE INSTRUCTIONS: None due to patient leaving AMA. Patient left before resident physician could pet adoption counselor patient about risks of leaving before workup completed. Job ID: [id number] MTDD
[2019-04-05 13:10] LABS: Enterovirus RT-PCR Negative (Negative)
[2019-04-05 14:09] LABS: West Nile Virus IgG Ab - CSF Negative (Negative); West Nile Virus IgM Ab - CSF Negative (Negative)
[2019-04-06 14:10] LABS: Metanephrine,Ur 66 ug/L (Undefined); Metanephrines Total-24H 109 ug/24 hr (45-290); Normetanephrine,Ur 193 ug/L (Undefined); Normetanephrines-24H U 318 ug/24 hr (82-500)
== END 2019-04-01 22:24 | disposition home or self-care (01) ==
LOC: ERS 12:20 → 2SW 15:01
PROVIDERS: ADMIT Student in an Organized Health Care Education/Training Program; ATTEND Student in an Organized Health Care Education/Training Program
DX: G44.1 Vascular headache, not elsewhere classified (principal); R07.89 Other chest pain; I16.0 Hypertensive urgency; I10 Essential (primary) hypertension; E11.65 Type 2 diabetes mellitus with hyperglycemia; E78.00 Pure hypercholesterolemia, unspecified; E78.5 Hyperlipidemia, unspecified; M10.9 Gout, unspecified; Z79.82 Long term (current) use of aspirin; Z79.899 Other long term (current) drug therapy
CPT/HCPCS: 36415; 36416; 62270; 70450; 70553; 71045; 80053; 82945; 83690; 83835; 83880; 84157; 84484; 85025; 85652; 86140; 86788; 86789; 87070; 87205; 87498; 87529; 87899; 89051; 93005; 96365; 96375; 96376; G0378; J0780; J1100; J1110; J1200; J1885; J2270; J2405; J2765; J3010; J8597; Q0163

== ENCOUNTER 2020-01-25 16:35 | Observation (INO) | payer SELFPAY ==
[2020-01-25 18:43] LABS: #Eosinphils 0.1 thou/uL (0.0-0.7); #Lymphocytes 2.3 thou/uL (1.20-3.40); #Monocytes 0.9 thou/uL (0.11-0.59); #Neutrophils 6.1 thou/uL (1.40-6.50); %Basophils 0.5 % (0.0-1.0); %Eosinophils 0.6 % (0.0-10.0); %Lymphocytes 24.9 % (21.0-51.0); %Monocytes 9.4 % (0.0-10.0); %Neutrophils 64.6 % (42.0-75.0); Hemoglobin 17.1 g/dL (14.0-18.0); Mean Corpuscular HGB CONC 34.5 g/dL (32.0-36.0); Mean Corpuscular Hemoglobin 31.7 pg (27.0-31.0); Platelet Count 247 thou/uL (130-400); RBC Distribution Width 12.9 % (11.5-14.5); White Blood Cell (WBC) Count 9.4 thou/uL (4.8-10.8)
[2020-01-25 19:01] LABS: ALT (SGPT) 25 U/L (8-55); AST (SGOT) 22 U/L (5-34); Albumin 4.1 g/dL (3.5-5.0); Alkaline Phosphatase 54 U/L (40-110); Anion Gap 15 mmol/L (10-20); BUN (Urea Nitrogen) 17 mg/dL (8.9-20.6); Bilirubin, Total 0.4 mg/dL (0.2-1.2); Calc. Creatinine Clearance 0 mL/min (70-130); Calcium 8.8 mg/dL (7.8-10.44); Carbon Dioxide 20 mmol/L (22-29); Chloride 107 mmol/L (98-107); Estimated GFR-MDRD 61; Globulin 3.2 g/dL (2.4-3.5); Glucose 273 mg/dL (70-105); Protein, Total 7.3 g/dL (6.0-8.3); Sodium 138 mmol/L (136-145)
[2020-01-25] MEDS ORDERED: Fentanyl 100 MCG/2 ML VIAL ONE (19:46)
[2020-01-25] MEDS ORDERED: Metoclopramide HCl 10 MG/2 ML VIAL ONE (19:47)
[2020-01-25] MEDS ORDERED: diphenhydrAMINE 50 MG/ML VIAL ONE (19:47)
[2020-01-25] MEDS ORDERED: Dexamethasone 10 MG/ML VIAL ONE (19:47)
--- NOTE | 2020-01-25 20:00 | RAD ---
PORTABLE CHEST ONE VIEW: 01/25/20 at 6:43 p.m. HISTORY: Syncope. FINDINGS: Comparison is made with the exam of 03/31/19. The heart size is borderline. The lungs are expanded without focal areas of consolidation, pneumotho races, yaneth pulmonary edema or pleural effusions. IMPRESSION: No acute process. POS: H
[2020-01-25 20:04] LABS: CK (CPK) 118 U/L (30-200); Lipase 41 U/L (8-78)
--- NOTE | 2020-01-25 20:22 | CT ---
CT BRAIN WITHOUT CONTRAST: 01/25/20 HISTORY: Syncope. COMPARISON: 03/31/29. FINDINGS: No evidence of acute infarct, hemorrhage, midline shift or abnormal extra-axial fluid collections are seen. The ventricular size is normal and the basilar cisterns patent. The bony calvarium is intact. There is mucosal disease in the paranasal sinuses. The mastoid air cells are clear. IMPRESSION: No CT evidence of acute intracranial process. POS: [facility]
[2020-01-25 20:42] LABS: Bilirubin Negative (Negative); Blood, Urine Negative (Negative); Clarity Clear (Clear); Glucose, Urine (Dipstick) Greater than 1000 mg/dL (Negative); Leukocyte Negative Leu/uL (Negative); Nitrite Negative (Negative); Protein, Urine (Dipstick) Negative (Neg-Trace); Urobilinogen Normal mg/dL (Less than 2)
--- NOTE | 2020-01-25 21:01 | PDOC.FPRHP ---
- History of Present Illness Chief Complaint: Headache, Syncope History of Present Illness: Pt is a 49 yo CM with pmh DMII, HTN, Migraine, and HLD who presents with a syncopal event and headache. Pt was seen by Dr. Pastor on Friday and given a toradol shot. Reports was feeling better for a few days and then headache came right back. Pt when and saw Dr. Chaves on today and was given some more toradol and was started on Keppra. This afternoon felt lightheaded. reports sweating a ton. Never lost conciousness. Had another episode in waiting room feeling really lightheaded. Reports having dizziness when he moves his head too fast. Reports blurry vision with headaches. Pt could not feel hands during these episodes. thought they were like seizures. Pt reports episode of loss memory last week. Pt reports has episodes over hour periods where he can't recall what happened. Pt and denies any convulsions. Denies any loss of urine or stool. Denies any vision changes or loss of smell prior to episodes. A year ago when the headaches started had similar episode where he couldn't talk. Pt has had headaches since last year when he was admitted. He reports increasing in frequency and severity headaches. He states the headaches are around his whole head and are a vice like mba intern. Pt also reports getting kicked in the head by horse a few months ago and reports thats when he had trouble with recall. Pt had appointment also recently with ENT a few months ago. Stated workup was negative with them. They found mucous cyst on prior imaging. ENT did not think was causing problems. Pt has been taking excedrin, immitrex. Been taking excedrin over the weekend and been keeping headaches stable. Pt takes medicine a couple times a day to help with headache. ED Course: Given regalan and fentanyl and reports headache much better. Reports feeling lightheaded. - Allergies/Adverse Reactions Allergies Allergy/AdvReac Type Severity Reaction Status Date / Time No Known Drug Allergies Allergy Verified 11/05/19 11:44 - Home Medications Medication Instructions Recorded Confirmed Type Febuxostat [Uloric] 40 mg PO Q2DAYS 12/07/14 01/25/20 History Aspirin [Aspirin EC] 81 mg PO DAILY #30 tablet. 08/09/17 01/25/20 Rx Omeprazole Magnesium [Prilosec] 10 mg PO DAILY 03/31/19 01/25/20 History Rosuvastatin [Crestor] 10 mg PO DAILY 03/31/19 01/25/20 History Temazepam [Restoril] 15 mg PO HS 03/31/19 01/25/20 History Atenolol [Tenormin] 1 tab PO DAILY 01/25/20 01/25/20 History Atenolol [Tenormin] 2 tab PO HS 01/25/20 01/25/20 History Dapagliflozin Propanediol [Farxiga] 10 mg PO DAILY 01/25/20 01/25/20 History FLUoxetine HCl 10 mg PO HS 01/25/20 01/25/20 History traZODone HCl [Trazodone HCl] 2 tab PO HS 01/25/20 01/25/20 History - History PMHx: DM2 HTN HLD PSHx: Multiple ortho surgeries FHx: HTN Social: Denies etoh, tobacco, recreational drugs - Review of Systems General: reports: other (diaphoresis). denies: fever/chills, weight/appetite/ sleep changes, fatigue Eyes: denies: vision changes ENT: denies: nasal congestion, rhinorrhea Respiratory: denies: congestion, shortness of breath Cardiovascular: denies: chest pain, edema Gastrointestinal: denies: nausea, vomiting, diarrhea, constipation, abdominal pain Genitourinary: denies: dysuria Skin: denies: rashes, lesions Musculoskeletal: denies: pain, tenderness Neurological: reports: syncope, other (dizziness). denies: numbness, weakness - Vital signs BP: 145/87 HR: 64 RR: 18 Tmax: 99.9 Pox: 100% on RA Wt: 136.56 kg - Physical Exam Constitutional: NAD, awake, alert and oriented HEENT: normocephalic and atraumatic, PERRLA, EOMI, conjunctiva clear, no scleral icterus, MMM, oropharynx clear Neck: supple, no LAD Heart: RRR, normal S1/S2, no murmurs/rubs/gallops, pulses present, no edema Lungs: CTAB, no respiratory distress, good air movement, no rales/rhonchi, no wheezing, no retractions Abdomen: soft, non-tender, bowel sounds present Musculoskeletal: normal structure, normal tone Neurological: no focal deficit, CN II-XII intact, normal sensation -Neurological: Strength 5/5 in all 4 extremities. No dysdiodiokinesia. Skin: no rash/lesions, good turgor Heme/Lymphatic: no unusual bruising or bleeding, no purpura, no petechia Psychiatric: normal mood and affect FMR H&P: Results - Labs Result Diagrams: 01/25/20 18:33 01/26/20 04:59 Lab results: WBC 9.4 thou/uL (4.8-10.8) 01/25/20 18:33 Hgb 17.1 g/dL (14.0-18.0) 01/25/20 18:33 Hct 49.7 % (42.0-52.0) 01/25/20 18:33 MCV 92.0 fL (78.0-98.0) 01/25/20 18:33 Plt Count 247 thou/uL (130-400) 01/25/20 18:33 Neutrophils % 64.6 % (42.0-75.0) 01/25/20 18:33 Sodium 138 mmol/L (136-145) 01/25/20 18:33 Potassium 4.0 mmol/L (3.5-5.1) 01/25/20 18:33 Chloride 107 mmol/L (98-107) 01/25/20 18:33 Carbon Dioxide 20 mmol/L (22-29) L 01/25/20 18:33 BUN 17 mg/dL (8.9-20.6) 01/25/20 18:33 Creatinine 1.26 mg/dL (0.7-1.3) 01/25/20 18:33 Glucose 273 mg/dL (70-105) H 01/25/20 18:33 Calcium 8.8 mg/dL (7.8-10.44) 01/25/20 18:33 Total Bilirubin 0.4 mg/dL (0.2-1.2) 01/25/20 18:33 AST 22 U/L (5-34) 01/25/20 18:33 ALT 25 U/L (8-55) 01/25/20 18:33 Alkaline Phosphatase 54 U/L (40-110) 01/25/20 18:33 Creatine Kinase 118 U/L (30-200) 01/25/20 18:33 B-Natriuretic Peptide 26.4 pg/mL (0-100) 01/25/20 18:33 Serum Total Protein 7.3 g/dL (6.0-8.3) 01/25/20 18:33 Albumin 4.1 g/dL (3.5-5.0) 01/25/20 18:33 Lipase 41 U/L (8-78) 01/25/20 18:33 Urine Ketones Trace mg/dL (Negative) A 01/25/20 20:16 Urine Blood Negative (Negative) 01/25/20 20:16 Urine Nitrite Negative (Negative) 01/25/20 20:16 Ur Leukocyte Esterase Negative Angella/uL (Negative) 01/25/20 20:16 - EKG Interpretation EKG: NSR, no acute abnormality - Radiology Interpretation CT scan - head Status: image reviewed by me, report reviewed by me (Negative) Chest x-ray Status: image reviewed by me, report reviewed by me (No acute process) FMR H&P: A/P - Plan Pt is a 49 yo CM with pmh DMII, HTN, Migraine, and HLD who presents with a syncopal event and headache. 1. Syncopy 2/2 Tension LEWIS Difficultly recalling recent events. No LOC. Diaphoresis. * Recent kick in the head by a horse 2 months ago * BPPV was negative although he did feel some dizziness * Will consult neuro in am * Ergotomine was tried with last admission, but patient had adverse reactions so will hold for now * s/p reglan, benadryl, and fentanyl in ED * Meclizine given * Orthostatics * Consider CTA of head and neck * Possible concern for seizure. Await neurology recs and consider outpatient testing. 2. Migraines- Tension Started 1 year ago. Worsening in nature * CT head was negative * Imaging during last admission was negative * MRI for worsening symptoms * Started on Fluoxetine by PCP * Will continue * Consider starting Depakote that was given by Dr. Chaves's office 3. DMII B * Continue home medication: Farxiga * ACHS checks, Mild SSI * A1C ordered 4. HTN BP: 145/87 * Continue home medication: Atenolol 5. HLD Continue home medication: Crestor 6. Anxiety Continue home medication: Temazepam Code Status: Full Diet: CC IVF: SL DVT PPx: Lovenox GI PPx: Protonix, home med PCP: [facility] Dispo: Admit to tele obs for workup of sycope and treatment of migraine and possibl s/e related to migraine vs TIA/Stroke. LOS <48H. FMR H&P: Upper Level - Pertinent history I was present with the finance accounting internship, Dr. Chris Herrmann, during the HPI. I scribed the above HPI. I made edits above as needed. - Pertinent findings Pt has no acute focal neuro defecit noted. DixHalpike/Sudhakar maneuvars performed- No nystagmus noted. Pt reports some dizziness when head is tilted to the right. Cardio: RRR, no murmurs or gallops Resp: CTA-B, no wheezes or crackles. - Plan Date/Time: 01/25/202056 I, Dean Contreras, PGY3, have evaluated this patient and agree with findings/ plan as outlined by finance accounting internship resident. Pertinent changes/additions are listed above. I have reviewed the above plan and made edits as needed. See above for full plan details. At this time admitting pt for intractable migraine. Possible concern for some seizure activity vs TIA/Stroke vs TBI w/ episodes of memory loss. Could all be aura related to migraine. Neurology consulted. Will await recs. Will get MRI for now. May consider EEG. Pt had some dizziness reported with DixHalpike/Sudhakar maneuvers. Given meclizine to see if helps with headaches and dizziness. Addendum - Attending - Attending Attestation Date/Time: 01/26/20 [id number] I personally evaluated the patient and discussed the management with the team. I agree with the History, Examination, Assessment and Plan documented above with any addition or exceptions noted below. Consult neuro. Previous AE to [facility] protocol.
[2020-01-25] MEDS ORDERED: Ondansetron PF 4 MG/2 ML Vial IVP PRN (22:20)
[2020-01-25] MEDS ORDERED: Acetaminophen 325 MG TAB PO PRN (22:20)
[2020-01-25] MEDS ORDERED: Dextrose 50% Abboject 50 ML SYRINGE SLOW IVP PRN (22:20)
[2020-01-25] MEDS ORDERED: Calcium Carbonate 500 MG ChewTAB PO PRN (22:20)
[2020-01-25] MEDS ORDERED: Dextrose 5% in Water 1,000 ML IV PRN (22:20)
[2020-01-25] MEDS ORDERED: Ondansetron ODT 4 MG TAB PO PRN (22:20)
[2020-01-25] MEDS ORDERED: Bisacodyl 10 MG SUPP PR PRN (22:20)
[2020-01-25] MEDS ORDERED: HumaLOG 300 UNITS/3 ML VIAL SC PRN (22:22)
[2020-01-26 02:36] VITALS: BMI 39.6
[2020-01-26] MEDS: Meclizine HCl 25 MG TAB PO SCH ×2 (05:38→14:44)
[2020-01-26 05:44] LABS: Hemoglobin A1c 7.9 % (4.0-6.0)
[2020-01-26 06:03] LABS: ALT (SGPT) 23 U/L (8-55); AST (SGOT) 16 U/L (5-34); Alkaline Phosphatase 52 U/L (40-110); Anion Gap 14 mmol/L (10-20); BUN (Urea Nitrogen) 17 mg/dL (8.9-20.6); Bilirubin, Total 0.4 mg/dL (0.2-1.2); Calc. Creatinine Clearance 160 mL/min (70-130); Calcium 8.7 mg/dL (7.8-10.44); Carbon Dioxide 20 mmol/L (22-29); Chloride 108 mmol/L (98-107); Estimated GFR-MDRD 73; Globulin 2.6 g/dL (2.4-3.5); Glucose 267 mg/dL (70-105); Potassium 4.3 mmol/L (3.5-5.1); Protein, Total 6.6 g/dL (6.0-8.3); Sodium 138 mmol/L (136-145)
--- NOTE | 2020-01-26 06:23 | PDOC.FM ---
- Subjective Subjective: Patient reports headache that started behind his right eye, moved to his left, and is now frontal. Denies changes in vision, photophobia, phonophobia. He states these are like his regular headaches. He states reglan and benadryl helped yesterday. states he was prescribed depakote 500 mg BID yesterday, has not started this medication. He also on day 5 of a 7 day prednisone taper started from the neurologist's office. - Objective Vital Signs & Weight: Vital Signs (12 hours) Temp Pulse Resp BP BP BP Pulse Ox 01/26/20 05:50 139/92 H 152/111 H 143/91 H 01/26/20 04:00 97.9 F 64 20 121/74 92 L 01/26/20 00:00 98.6 F 72 20 144/97 H 96 Weight Weight 136.56 kg Result Diagrams: 01/25/20 18:33 01/26/20 04:59 Phys Exam - Physical Examination Constitutional: NAD HEENT: PERRLA, moist MMs Respiratory: no wheezing, clear to auscultation bilateral Cardiovascular: RRR, no significant murmur Gastrointestinal: soft, non-tender, no distention Musculoskeletal: no edema, pulses present Neurological: non-focal, moves all 4 limbs Psychiatric: normal affect, A&O x 3 Skin: no rash, cap refill <2 seconds Dx/Plan (1) Headache Code(s): R51 - HEADACHE Status: Acute Qualifiers: Headache type: unspecified Headache chronicity pattern: acute headache Intractability: intractable Qualified Code(s): R51 - Headache (2) DM (diabetes mellitus), type 2, uncontrolled Code(s): E11.65 - TYPE 2 DIABETES MELLITUS WITH HYPERGLYCEMIA Status: Chronic Qualifiers: Glycemic state: with hyperglycemia Qualified Code(s): E11.65 - Type 2 diabetes mellitus with hyperglycemia (3) HLD (hyperlipidemia) Code(s): E78.5 - HYPERLIPIDEMIA, UNSPECIFIED Status: Chronic Qualifiers: Hyperlipidemia type: unspecified Qualified Code(s): E78.5 - Hyperlipidemia , unspecified (4) HTN (hypertension) Code(s): I10 - ESSENTIAL (PRIMARY) HYPERTENSION Status: Chronic Qualifiers: Hypertension type: unspecified Qualified Code(s): I10 - Essential (primary ) hypertension - Plan Plan: 1. Pre-Syncope, likely vasovagal Two episodes, one lasted about 90 seconds, the other 10 seconds. At rest. No LOC. Diaphoresis. No post-ictal confusion. * BPPV was negative although he did feel some dizziness. Meclizine started * Consult neuro today, appreciate recs * Ergotomine was tried with last admission, but patient had adverse reactions so will hold for now * Orthostatics normal * Denies chest pain/palpitations * NSR overnight in the 60s 2. Intractable Migraines Started 1 year ago. Worsening in nature * Recently kicked in the head by a horse 2 months ago, frequency increased since that time * CT head was negative, imaging last visit negative * MRI for worsening symptoms * Started on Fluoxetine by PCP * Will continue * Neuro consulted this AM. Consider starting Depakote that was given by Dr. Chaves's office * Pt also stated he was taking his 's imitrex, which help with the headaches * Consider continuing taper started outpatient, however this has not seemed to help the headaches 3. DMII B * Continue home medication: Farxiga * ACHS checks, Mild SSI * A1C 7.9 4. HTN BP: 145/87 * Continue home medication: Atenolol 5. HLD Continue home medication: Crestor 6. Anxiety Continue home medication: Temazepam Code Status: Full Diet: CC IVF: SL DVT PPx: Lovenox GI PPx: Protonix, home med PCP: [facility] Dispo: Admitted to tele obs for intractable migraine, presyncope. LOS <48H. Addendum - Attending - Attending Attestation Date/Time: 01/26/20 0753 I personally evaluated the patient and discussed the management with Dr. Hui Padgett. I agree with the History, Examination, Assessment and Plan documented above with any addition or exceptions noted below. Patient overall stable, headache improved. Neuro has evaluated, recommends EEG currently being performed. MRI negative. Working getting pain controlled with Toradol and if so can likely be dc later today. Echo due to possible pre- syncope at the request of neurology.
[2020-01-26] MEDS: HumaLOG 300 UNITS/3 ML VIAL SC PRN ×2 (06:35→10:56)
--- NOTE | 2020-01-26 08:37 | MRI ---
MRI BRAIN NONCONTRAST: DATE: 01/26/2020 HISTORY: 57-year-old male with headache and syncope FINDINGS: The ventricles are normal in size and configuration. There is no major intra-axial signal abnormality , restricted diffusion, midline shift or any other mass effect, recent intra-axial hemorrhage, or extra-axial fluid collection. There is a large mucus retention cyst almost completely filling the left maxillary sinus. No interval change since 04/01/2019. IMPRESSION: Normal
[2020-01-26] MEDS ORDERED: Metoclopramide HCl 10 MG/2 ML VIAL IVP SCH ×2 (09:00→16:00)
[2020-01-26] MEDS ORDERED: Sodium Chloride 0.9% 1,000 ML IV SCH (09:00)
[2020-01-26] MEDS ORDERED: Aspirin 81 mg Enteric Coated Tablet PO SCH (09:00)
[2020-01-26] MEDS ORDERED: Atenolol 50 MG TAB PO SCH ×2 (09:00→21:00)
[2020-01-26] MEDS ORDERED: diphenhydrAMINE 50 MG/ML VIAL IVP SCH ×3 (09:00→16:00)
[2020-01-26] MEDS ORDERED: Rosuvastatin 10 MG TAB PO SCH (09:00)
[2020-01-26] MEDS ORDERED: Enoxaparin Sodium 40 MG/0.4 ML SYRINGE SC SCH (09:00)
[2020-01-26 11:34] VITALS: TEMP 98
[2020-01-26] MEDS ORDERED: Ketorolac Tromethamine 30 MG/ML VIAL IVP SCH ×3 (11:45→16:00)
[2020-01-26] MEDS ORDERED: Empagliflozin 25 MG TAB PO SCH (12:00)
--- NOTE | 2020-01-26 12:16 | CON ---
NEUROLOGY CONSULTATION DATE OF CONSULTATION: 01/26/2020 REASON FOR CONSULTATION: Headache, seizure/episodes of altered mental status. HISTORY OF PRESENT ILLNESS: Mr. Stoner is a 49-year-old male with history significant for diabetes, hypertension, migraine, and hyperlipidemia, presents with an episode of altered mental status with severe headache. He was seen by a physician on Friday and was given Toradol, which made him feel better but then he again had headache. The history is taken from the and the patient. According to the , he has been having headaches off and on since March, which has been getting worse for the last 2 weeks. He also has episodes during which he stare off in space and seems to be confused, but does not lose consciousness. Yesterday afternoon, he had a spell during which he became extremely lightheaded and had profuse sweating to the extent that his shirt was soaked in sweat. He did not lose consciousness. The denies any convulsions, tongue bite or urinary incontinence associated with the episode. He also had another episode with a headache a while ago during which he could not talk. The headaches have been going on and off since March. He describes the headache as a sharp pain, but denies nausea, vomiting associated with these episodes. He does have history of concussion. In the emergency room, he was given Reglan and fentanyl, which did help with the headache. - Allergies/Adverse Reactions Allergies Allergy/AdvReac Type Severity Reaction Status Date / Time No Known Drug Allergies Allergy Verified 11/05/19 11:44 - Home Medications Medication Instructions Recorded Confirmed Type Febuxostat [Uloric] 40 mg PO Q2DAYS 12/07/14 01/25/20 History Aspirin [Aspirin EC] 81 mg PO DAILY #30 tablet. 08/09/17 01/25/20 Rx Omeprazole Magnesium [Prilosec] 10 mg PO DAILY 03/31/19 01/25/20 History Rosuvastatin [Crestor] 10 mg PO DAILY 03/31/19 01/25/20 History Temazepam [Restoril] 15 mg PO HS 03/31/19 01/25/20 History Atenolol [Tenormin] 1 tab PO DAILY 01/25/20 01/25/20 History Atenolol [Tenormin] 2 tab PO HS 01/25/20 01/25/20 History Dapagliflozin Propanediol [Farxiga] 10 mg PO DAILY 01/25/20 01/25/20 History FLUoxetine HCl 10 mg PO HS 01/25/20 01/25/20 History traZODone HCl [Trazodone HCl] 2 tab PO HS 01/25/20 01/25/20 History PAST MEDICAL HISTORY: Diabetes, hypertension, hyperlipidemia. PAST SURGICAL HISTORY: Multiple orthopedic surgeries. FAMILY HISTORY: Significant for hypertension. SOCIAL HISTORY: . Lives with his . Denies smoking, alcohol, illegal drug use. REVIEW OF SYSTEMS: All 12 systems were reviewed and were negative except the one mentioned in HPI. Vital Signs & Weight: Vital Signs (12 hours) Temp Pulse Resp BP BP BP Pulse Ox 01/26/20 05:50 139/92 H 152/111 H 143/91 H 01/26/20 04:00 97.9 F 64 20 121/74 92 L 01/26/20 00:00 98.6 F 72 20 144/97 H 96 Weight Weight 136.56 kg - Physical Examination Constitutional: NAD HEENT: PERRLA, moist MMs Respiratory: no wheezing, clear to auscultation bilateral Cardiovascular: RRR, no significant murmur Gastrointestinal: soft, non-tender, no distention Musculoskeletal: no edema, pulses present Neurological:Mental status: The patient is alert and oriented to person, place , and time. Speech is clear. Fund of knowledge is appropriate. Recent and remote memory intact. Cranial nerves 2 through 12 intact. Motor: Muscle tone and bulk are normal. Strength 5/5 bilaterally. Sensory intact. Cerebellar, finger-nose testing intact. Gait deferred due to the patient's safety reason. Dx/Plan (1) Headache Code(s): R51 - HEADACHE Status: Acute Qualifiers: Headache type: unspecified Headache chronicity pattern: acute headache Intractability: intractable Qualified Code(s): R51 - Headache (2) DM (diabetes mellitus), type 2, uncontrolled Code(s): E11.65 - TYPE 2 DIABETES MELLITUS WITH HYPERGLYCEMIA Status: Chronic Qualifiers: Glycemic state: with hyperglycemia Qualified Code(s): E11.65 - Type 2 diabetes mellitus with hyperglycemia (3) HLD (hyperlipidemia) Code(s): E78.5 - HYPERLIPIDEMIA, UNSPECIFIED Status: Chronic Qualifiers: Hyperlipidemia type: unspecified Qualified Code(s): E78.5 - Hyperlipidemia , unspecified (4) HTN (hypertension) Code(s): I10 - ESSENTIAL (PRIMARY) HYPERTENSION Status: Chronic Qualifiers: Hypertension type: unspecified Qualified Code(s): I10 - Essential (primary ) hypertension DATA REVIEWED: I reviewed the labs which are essentially unremarkable except glucose of 267. The EKG showed normal sinus rhythm. I reviewed the head CT which was negative for acute intracranial pathology. Chest x-ray also did not show any acute processes. ASSESSMENT AND PLAN: Mr. Shaji Stoner is a 49-year-old male with medical history significant for hypertension, migraine, hyperlipidemia, and diabetes mellitus, presented with a presyncopal episode associated with severe headache. He has most likely posttraumatic headaches secondary to hit by horse in the head two months ago. Consider Toradol, Benadryl and Compazine cocktail on a scheduled basis to see if it aborts the headache. MRI of the brain reviewed which was negative for acute intracranial process. EEG ongoing. We will follow up on the results of the EEG EEG ordered for memory issues and periods of memory lapse, which has been going on for the last couple of years, worsened since the last 2 weeks. Check orthostatics , neuro checks every 4 hours, echocardiography to further evaluate for a syncopal episode. Continue home medications. Strict control of the blood pressure and blood glucose. Continue medical management per primary team. Job ID: [id number] [facility]
--- NOTE | 2020-01-26 13:49 | EEG ---
Referring Physician: Sonya MANZANARES EEG # [id number] TEST TYPE: EXTENDED CONTINUOUS DIGITAL VIDEO EEG REPORT: This EEG was performed using 24 channel [employer] digital video EEG machine with 24 disc electrodes. This was an extended 2 hour 5 minutes of inpatient video EEG recording. Digital analysis of the EEG was done for spike and seizure detection which revealed no abnormalities. BACKGROUND: The posterior background rhythm is 8.5-9 hertz. Minimal reactivity is seen to eye opening and closure. HYPERVENTILATION: No significant response seen with hyperventilation. PHOTIC STIMULATION: Bioccipital symmetric driving response seen is observed. SLEEP: Drowsiness and sleep are observed. EEG DIAGNOSIS: NORMAL AWAKE, DROWSY AND ASLEEP EEG. Diesel Dinkey Engineer: ROSINA Safety Aide: EEG.LAURA HIGGINS
[2020-01-26 15:32] VITALS: BP 127/70
[2020-01-26] MEDS ORDERED: FLUoxetine HCl 10 MG CAP PO SCH (21:00)
[2020-01-26] MEDS ORDERED: Temazepam 15 MG CAP PO SCH (21:00)
[2020-01-26] MEDS ORDERED: traZODone HCl 50 MG TAB PO SCH ×2 (21:00)
--- NOTE | 2020-01-27 08:58 | DIS ---
DATE OF ADMISSION: 01/25/2020 DATE OF DISCHARGE: 01/26/2020 RESIDENT: Nicolasa Padgett MD. DISCHARGE ATTENDING: Dr. Shaji Mack. CONSULTS: Dr. Galan on 01/26/2020, Neurology. PROCEDURES: 1. Brain CT on 01/25/2020, no CT evidence of acute intracranial process. 2. Chest x-ray on 01/25/2020, no acute process. 3. Brain MRI on 01/26/2020. Impression, normal. 4. Electrophysiology procedure on 01/26/[address] Galan. EEG diagnosis; normal awake, drowsy, and sleep EEG. PRIMARY DIAGNOSES: 1. Presyncope, likely vasovagal. 2. Likely posttraumatic headaches. SECONDARY DIAGNOSES: Includes migraines, hypertension, hyperlipidemia, diabetes mellitus, anxiety. DISCHARGE MEDICATIONS: 1. Aspirin 81 mg p.o. daily. 2. Atenolol 50 mg one tablet p.o. b.i.d. 3. Farxiga 10 mg p.o. daily. 4. Febuxostat 40 mg p.o. q.2 days. 5. Fluoxetine 10 mg p.o. at bedtime. 6. Omeprazole 10 mg p.o. daily. 7. Rosuvastatin 10 mg p.o. daily. 8. Temazepam 15 mg p.o. at bedtime. 9. Trazodone 100 mg tablets two tablets p.o. at bedtime. 10. Ketorolac 10 mg tablets p.o. q.6 hours p.r.n. Discontinued medication, none. HISTORY OF PRESENT ILLNESS/HOSPITAL COURSE: A 49-year-old male with past medical history of migraines, diabetes mellitus, hypertension, hyperlipidemia, presented after a presyncopal event and headache. The patient reports he was seen by Dr. Pastor's PA 5 days ago and was given a Toradol shot for headache. This worked for his headaches for few days and then they returned. He saw Dr. 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 On the afternoon of admission, he felt he was having two episodes, one lasting 90 seconds and one lasting about 10 to 20 seconds, where he felt lightheaded and was sweating. He denied losing consciousness. He also reports some recent dizziness if he moved his head too fast. He reported to the admitting team blurry vision with headaches as well as not being able to feel his hands during these episodes. The patient also reported an episode of memory loss the week prior. He did not have any postictal states or have any auras prior to the episodes, and denied any convulsions. He also denied any loss of urine or stool with these episodes. He reports the headaches started a year ago after he was undergoing treatment for back pain. He also reports getting kicked in the head by a horse couple of months ago and that was around the time he had trouble with memory. He also had a recent appointment with ENT and stated the workup was negative with them. The patient was admitted overnight for monitoring for pre-syncope and intractable headache. His telemetry monitoring was unremarkable overnight (NSR in the 60s). Headache improved on Reglan and Benadryl, and fentanyl in the ER. In the morning, his headache returned and he was given another round of Reglan, Benadryl, and IV fluids and his headache improved. Dr. Galan was consulted, Neurology. An MRI was performed as well as EEG, which were both normal. Dr. Galan states the headaches may be posttraumatic from being kicked in the head. She recommended an echo. We discussed with the patient, and recommended an outpatient echo as the patient did not want to stay another night in the hospital. He was discharged to continue his medications and start p.o. Toradol q.4 to q.6 hours p.r.n. He was instructed to closely follow up with Dr. Chaves as well as with his primary care doctor within [address] Galan did not recommend starting the Keppra at this time. We instructed the patient to hold off starting Keppra until he follows up with Dr. Chaves in 3 days time. Disposition: Stable Discharge instructions: 1. Location: home 2. Diet: Heart healthy 3. Activity: as tolerated 4. Follow up with PCP within 1 week, follow up with Dr. Chaves within 3 days. Job ID: [id number] [facility]TD[facility]
[2020-01-27] MEDS ORDERED: Empagliflozin 25 MG TAB PO SCH (09:00)
[2020-01-27] MEDS ORDERED: Febuxostat 40 MG TAB PO SCH (09:00)
--- NOTE | 2020-02-05 14:50 | EKG ---
Test Reason : Blood Pressure : / mmHG Vent. Rate : 066 BPM Atrial Rate : 066 BPM P-R Int : 154 ms QRS Dur : 090 ms QT Int : 410 ms P-R-T Axes : 046 006 035 degrees QTc Int : 429 ms Normal sinus rhythm Cannot rule out Anterior infarct , age undetermined Abnormal ECG Confirmed by BLANCA MARSHALL, CARRIE ([id number]), editor school photograph ARYAN WHITE ([id number]) on 02/05/2020 2:49:56 PM Referred By: Confirmed By:CARRIE RIOS MD
== END 2020-01-26 17:48 | disposition home or self-care (01) ==
LOC: ERS 16:35 → 2SE 20:56
PROVIDERS: ADMIT Student in an Organized Health Care Education/Training Program; ATTEND Student in an Organized Health Care Education/Training Program
DX: R55 Syncope and collapse (principal); G43.019 Migraine without aura, intractable, without status migrainosus; I10 Essential (primary) hypertension; E78.5 Hyperlipidemia, unspecified; E11.65 Type 2 diabetes mellitus with hyperglycemia; F41.9 Anxiety disorder, unspecified; Z79.82 Long term (current) use of aspirin; Z79.84 Long term (current) use of oral hypoglycemic drugs; Z79.899 Other long term (current) drug therapy
CPT/HCPCS: 36415; 36416; 70450; 70551; 71045; 80053; 81003; 82550; 83036; 83690; 83880; 84146; 84484; 85025; 93005; 95712; 95816; 95819; 95957; 96361; 96365; 96366; 96372; 96375; 96376; G0378; J1100; J1200; J1650; J1885; J2765; J3010

== ENCOUNTER 2020-03-14 16:52 | Observation (INO) | payer OTHER, SELFPAY ==
[2020-03-14 17:18] LABS: #Basophils 0.1 thou/uL (0.0-0.2); #Eosinphils 0.1 thou/uL (0.0-0.7); #Lymphocytes 2.1 thou/uL (1.20-3.40); #Monocytes 0.9 thou/uL (0.11-0.59); %Basophils 1.1 % (0.0-1.0); %Eosinophils 0.7 % (0.0-10.0); %Lymphocytes 29.1 % (21.0-51.0); %Monocytes 12.5 % (0.0-10.0); %Neutrophils 56.7 % (42.0-75.0); Mean Corpuscular HGB CONC 31.9 g/dL (32.0-36.0); Mean Corpuscular Hemoglobin 29.3 pg (27.0-31.0); Mean Platelet Volume 7.3 fL (7.4-10.4); Platelet Count 259 thou/uL (130-400); Red Blood Cell (RBC) Count 5.81 mill/uL (4.70-6.10); White Blood Cell (WBC) Count 7.1 thou/uL (4.8-10.8)
--- NOTE | 2020-03-14 17:18 | RAD ---
Exam: Chest one view HISTORY:Chest pain Comparison: 01/25/2020 FINDINGS: Cardiac silhouette: Normal Aorta: Unremarkable Pulmonary vessels: Normal Costophrenic angles: Clear LUNGS: No masses or consolidation. Pneumothorax: None Osseous abnormalities: None IMPRESSION: No acute cardiopulmonary process.
[2020-03-14] MEDS ORDERED: Nitroglycerin 0.4 MG TAB 1 EACH ONE (17:30)
[2020-03-14] MEDS ORDERED: Aspirin Chewable 81 MG TAB ONE (17:30)
[2020-03-14 17:41] LABS: ALT (SGPT) 28 U/L (8-55); AST (SGOT) 25 U/L (5-34); Albumin 4.2 g/dL (3.5-5.0); Alkaline Phosphatase 56 U/L (40-110); Anion Gap 15 mmol/L (10-20); BUN (Urea Nitrogen) 12 mg/dL (8.4-25.7); Bilirubin, Total 0.4 mg/dL (0.2-1.2); CK (CPK) 322 U/L (30-200); Calc. Creatinine Clearance 0 mL/min (70-130); Calcium 9.5 mg/dL (7.8-10.44); Carbon Dioxide 21 mmol/L (22-29); Chloride 104 mmol/L (98-107); Estimated GFR-MDRD 77; Globulin 3.2 g/dL (2.4-3.5); Glucose 144 mg/dL (70-105); Potassium 3.8 mmol/L (3.5-5.1); Protein, Total 7.4 g/dL (6.0-8.3); Sodium 136 mmol/L (136-145)
[2020-03-14 21:18] VITALS: BMI 41.5
[2020-03-14] MEDS ORDERED: Acetaminophen 650 MG Suppository PR PRN (21:22)
[2020-03-14] MEDS ORDERED: Ondansetron PF 4 MG/2 ML Vial IVP PRN (21:22)
[2020-03-14] MEDS ORDERED: Acetaminophen 325 MG TAB PO PRN (21:22)
[2020-03-14] MEDS ORDERED: Ondansetron ODT 4 MG TAB PO PRN (21:22)
[2020-03-14] MEDS ORDERED: Calcium Carbonate 500 MG ChewTAB PO PRN (21:22)
[2020-03-14 22:29] LABS: Troponin I Less than 0.010 ng/mL (< 0.028)
[2020-03-14 23:00] LABS: Hemoglobin A1c 7.7 % (4.0-6.0)
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
[2020-03-15 01:19] LABS: Troponin I 0.018 ng/mL (< 0.028)
[2020-03-15] MEDS ORDERED: Dextrose 50% Abboject 50 ML SYRINGE SLOW IVP PRN (03:54)
[2020-03-15] MEDS ORDERED: HumaLOG 300 UNITS/3 ML VIAL SC PRN ×2 (03:54)
[2020-03-15] MEDS ORDERED: Dextrose 5% in Water 1,000 ML IV PRN (03:54)
[2020-03-15 04:35] LABS: #Basophils 0.1 thou/uL (0.0-0.2); #Eosinphils 0.1 thou/uL (0.0-0.7); #Lymphocytes 2.4 thou/uL (1.20-3.40); #Monocytes 0.9 thou/uL (0.11-0.59); #Neutrophils 3.7 thou/uL (1.40-6.50); %Basophils 0.8 % (0.0-1.0); %Eosinophils 1.1 % (0.0-10.0); %Lymphocytes 33.5 % (21.0-51.0); %Monocytes 12.5 % (0.0-10.0); %Neutrophils 52.1 % (42.0-75.0); Hemoglobin 16.5 g/dL (14.0-18.0); Mean Corpuscular HGB CONC 32.8 g/dL (32.0-36.0); Mean Corpuscular Hemoglobin 30.3 pg (27.0-31.0); Mean Corpuscular Volume 92.5 fL (78.0-98.0); Mean Platelet Volume 7.3 fL (7.4-10.4); Platelet Count 219 thou/uL (130-400); Red Blood Cell (RBC) Count 5.44 mill/uL (4.70-6.10)
[2020-03-15 04:39] LABS: Anion Gap 12 mmol/L (10-20); BUN (Urea Nitrogen) 12 mg/dL (8.4-25.7); Calc. Creatinine Clearance 192 mL/min (70-130); Carbon Dioxide 24 mmol/L (22-29); Cardiac Risk 7.2 (Less than 4.5); Chloride 104 mmol/L (98-107); Cholesterol 179 mg/dl (< 200 Desired); Estimated GFR-MDRD 87; Glucose 184 mg/dL (70-105); HDL Cholesterol 25 mg/dL (>60 Neg Risk); Potassium 3.7 mmol/L (3.5-5.1); Sodium 136 mmol/L (136-145); Triglycerides 831 mg/dL (Less than 150)
[2020-03-15 08:49] VITALS: TEMP 98.5
[2020-03-15] MEDS ORDERED: Nitroglycerin 4.9 GM Bottle SL PRN (08:49)
--- NOTE | 2020-03-15 08:59 | PDOC.FM ---
- Subjective Subjective: Patient resting comfortably in bed. Says he feels "wonderful". No episodes of CP since in the ER. Denies LEWIS vision changes, SOB, abdominal pain, edema. - Objective MAR Reviewed: Yes Vital Signs & Weight: Vital Signs (12 hours) Temp Pulse Resp BP Pulse Ox 03/15/20 08:00 98.5 F 86 18 134/88 97 03/15/20 03:42 98.0 F 64 16 109/53 L 95 03/14/20 21:00 98.3 F 74 18 157/85 H 97 Weight Weight 142.882 kg I&O: 03/14/20 03/15/20 03/16/20 06:59 06:59 06:59 Intake Total 0 Balance 0 Result Diagrams: 03/15/20 04:10 03/15/20 04:10 Phys Exam - Physical Examination Constitutional: NAD HEENT: sclera anicteric Neck: full ROM Respiratory: no wheezing, clear to auscultation bilateral Cardiovascular: RRR, no significant murmur Gastrointestinal: soft, non-tender, no distention Musculoskeletal: no edema, pulses present Neurological: moves all 4 limbs Psychiatric: normal affect, A&O x 3 Skin: normal turgor Dx/Plan - Plan Plan: Atypical chest pain - Unlikely STEMI given negative trop and EKG - stress test one year ago normal per patient - Stress test 03/15 - nitro PRN HTN - Home medications DM - SSI - Glucose check Gout - continue home med HLD - Continue home med, increase Rosuvastatin to 20mg DVT ppx: SCD GI ppx: famotidine Code: Full Diet: NPO midnight Disposition/LOS: Admitted to tele obs for atypical chest pain, LOS <48 hrs
[2020-03-15] MEDS ORDERED: Famotidine 20 MG TAB PO SCH (09:00)
[2020-03-15] MEDS ORDERED: Febuxostat 40 MG TAB PO SCH (10:00)
[2020-03-15] MEDS ORDERED: Regadenoson 0.4 MG/5 ML SYRINGE ONE (10:29)
[2020-03-15 13:55] VITALS: BP 136/86
--- NOTE | 2020-03-15 14:14 | NM ---
Radionucleotide stress only myocardial perfusion scan with CT attenuation correction and SPECT imagin g Left ventricular wall motion evaluation and ejection fraction HISTORY: Chest pain. FINDINGS: Lexiscan protocol. There is homogeneous uptake of radiotracer throughout the left ventricul ar myocardium. No focal perfusion defects. QGS analysis of gated SPECT images shows no focal wall motion abnormalities. Ejection fraction calcul ated at 46%. IMPRESSION : No evidence of ischemia. Borderline ejection fraction of 46%.
[2020-03-15] MEDS ORDERED: metFORMIN 500 MG TAB PO SCH (17:00)
--- NOTE | 2020-03-15 19:32 | HP ---
HISTORY OF PRESENT ILLNESS: I have examined the patient and discussed the case with Dr. Sri Jimenez. Mr. Stoner is a pleasant 50-year-old man with no prior history of coronary artery disease. For the last two days, he has had two episodes of chest pain described as a very sharp severe pain occurring in the left chest radiating into his left arm. These both occurred at rest and lasted several minutes. They were associated with diaphoresis and some shortness of breath. He eventually presented to the emergency room, has been admitted for evaluation. PHYSICAL EXAMINATION: VITAL SIGNS: His vital signs are stable. GENERAL: He is awake and alert, no distress. EAR, NOSE, AND THROAT: No erythema or exudate. NECK: Supple. CARDIAC: Heart rhythm regular. He does have an S4 gallop, but no murmur or rub noted. LUNGS: Clear without rales or wheezes. ABDOMEN: Flat and soft without guarding or rebound. LUNGS: Clear. No rales, wheezes, or distress. NEUROLOGIC: No focal deficits. EXTREMITIES: He does have trace pitting edema. LABORATORY DATA: CBC; white count is 7100, hemoglobin 17, and hematocrit 53.4 with an MCV of 92. Chemistries; sodium 136, potassium 3.7, chloride 104, bicarb 24, BUN 12, and creatinine 0.92, glucose of 184, and triglycerides 831. Troponins x3 are negative. EKG shows no acute ischemic changes. His HEART score is 4. ASSESSMENT: Atypical chest pain, but in a patient with significant coronary artery risk. PLAN: Admit and perform stress Myoview testing with followup Cardiology consultation or heart catheterization if indicated. Job ID: [id number]
[2020-03-15] MEDS ORDERED: Rosuvastatin 20 MG TAB PO SCH (21:00)
[2020-03-15] MEDS ORDERED: Temazepam 15 MG CAP PO SCH ×2 (21:00)
[2020-03-15] MEDS ORDERED: FLUoxetine HCl 10 MG CAP PO SCH (21:00)
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
[2020-03-16] MEDS ORDERED: Fenofibrate 48 MG TAB PO SCH (09:00)
[2020-03-16] MEDS ORDERED: Aspirin 81 mg Enteric Coated Tablet PO SCH (09:00)
[2020-03-16] MEDS ORDERED: Non-Formulary Item 1 EACH (Omeprazole Magnesium [Prilosec] 10 MG) PO SCH (09:00)
[2020-03-16 13:54] LABS: SARS-CoV-2 MS2 Positive; SARS-CoV-2 N Gene Negative; SARS-CoV-2 S Gene Negative; SARS-CoV-2 by NAA Not Detected (NotDetected); SARS-CoV-2 orf1ab Negative
--- NOTE | 2020-03-30 16:07 | EKG ---
Test Reason : Blood Pressure : / mmHG Vent. Rate : 076 BPM Atrial Rate : 076 BPM P-R Int : 154 ms QRS Dur : 086 ms QT Int : 368 ms P-R-T Axes : 034 -06 017 degrees QTc Int : 414 ms Normal sinus rhythm Minimal voltage criteria for LVH, may be normal variant Inferior infarct , age undetermined Abnormal ECG Confirmed by GER Davis, BOSSMAN ([id number]), graphic editor OLIVIA ALCALA ([id number]) on 03/30/2020 4:06:35 PM Referred By: Confirmed By:BOSSMAN CYR M.D.
--- NOTE | 2020-04-04 13:44 | STRESS ---
Acquisition Time: 2020-03-15 12:02:51 Total Exercise Time: 00:07:42 Test Indications: CHEST PAIN Medications: Protocol: LILI Max HR: 125 BPM 73% of Pred: 169 BPM Max BP: 152/080 mmHG Max Work Load: 10.1 METS THE PATIENT WAS INJECTED WITH LEXISCAN. HE DID NOT DEVELOP CHEST PAIN. THERE WAS NO SIGNIFICANT ST DEPRESSION. AWAIT NUCLEAR IMAGES FOR DEFINITIVE DIAGNOSIS. Confirmed by TUAN TENORIO ([id number]), magazine editor KELIN HERNANDEZ ([id number]) on 04/04/2020 1:43:35 PM Referred By: MD Miguel EDWARDS Confirmed By:TUAN TENORIO
== END 2020-03-15 17:45 | disposition home or self-care (01) ==
LOC: ERS 16:52 → 2NO 18:44
PROVIDERS: ADMIT Student in an Organized Health Care Education/Training Program; ATTEND Student in an Organized Health Care Education/Training Program
DX: R07.89 Other chest pain (principal); I10 Essential (primary) hypertension; E11.9 Type 2 diabetes mellitus without complications; E78.5 Hyperlipidemia, unspecified; M10.9 Gout, unspecified; Z79.82 Long term (current) use of aspirin; Z79.84 Long term (current) use of oral hypoglycemic drugs; Z79.899 Other long term (current) drug therapy; Z20.828 Contact with and (suspected) exposure to other viral communicable diseases
CPT/HCPCS: 36415; 36416; 71045; 78452; 80048; 80053; 80061; 82550; 83036; 83690; 84484; 85025; 87635; 93005; 93017; 94760; A9500; G0378; J2785; U0003

== ENCOUNTER 2021-05-01 11:01 | Outpatient (CLI) | payer OTHER | END 2021-05-01 11:02 | disposition home or self-care (01) | LOC: BICULT 11:01 | PROVIDERS: ATTEND Specialist | DX: R10.13 Epigastric pain (principal); K76.0 Fatty (change of) liver, not elsewhere classified | CPT/HCPCS: 76705 ==

== ENCOUNTER 2024-04-12 23:20 | Inpatient (IN) | payer SELFPAY ==
[2024-04-13] MEDS ORDERED: Insulin Regular, Human 100 UNIT/ML 10 ML VIAL ONE (00:18)
[2024-04-13] MEDS ORDERED: Dextrose 50% Abboject 50 ML SYRINGE SLOW IVP PRN ×2 (00:57→06:21)
[2024-04-13] MEDS ORDERED: Dextrose 5% in Water 1,000 ML IV PRN (00:57)
[2024-04-13] MEDS ORDERED: Ondansetron ODT 4 MG TAB PO PRN (00:57)
[2024-04-13] MEDS ORDERED: Glucagon 1 MG/ML KIT IM PRN (00:57)
[2024-04-13 01:31] LABS: Anion Gap 17 mmol/L (10-20); BUN (Urea Nitrogen) 9 mg/dL (8.4-25.7); Calc. Creatinine Clearance 0 mL/min (70-130); Calcium 9.3 mg/dL (7.8-10.44); Carbon Dioxide 19 mmol/L (22-29); Chloride 101 mmol/L (98-107); Estimated GFR 86; Glucose 394 mg/dL (70-105); Sodium 133 mmol/L (136-145)
[2024-04-13] MEDS: Lorazepam 1 MG TAB PO SCH ×2 (01:48→21:21)
[2024-04-13] MEDS: Lactated Ringer's 1,000 ML IV SCH ×3 (01:48→14:47)
[2024-04-13] MEDS: Acetaminophen 325 MG TAB PO SCH ×2 (01:50→08:13)
[2024-04-13] MEDS: Insulin Lispro 100 UNIT/ML 10 ML VIAL SC PRN ×3 (01:55→08:16)
[2024-04-13 02:10] VITALS: BMI 34.0
[2024-04-13] MEDS: traZODone HCl 50 MG TAB PO SCH ×2 (02:58→21:15)
[2024-04-13 04:20] LABS: #Basophils Less than 0.03 10x3/uL (0.0-0.2); #Eosinphils Less than 0.03 10x3/uL (0.0-0.7); %Basophils 0.1 % (0.0-1.0); %Lymphocytes 9.9 % (21.0-51.0); %Monocytes 2.3 % (0.0-10.0); %Neutrophils 87.3 % (42.0-75.0); Hematocrit 41.7 % (42.0-52.0); Hemoglobin 14.5 g/dL (14.0-18.0); Mean Corpuscular HGB CONC 34.8 g/dL (32.0-36.0); Mean Corpuscular Volume 89.3 fL (78.0-98.0); Mean Platelet Volume 9.7 fL (7.4-10.4); Platelet Count 287 10x3/uL (130-400); RBC Distribution Width 12.7 % (11.5-14.5); Red Blood Cell (RBC) Count 4.67 mill/uL (4.70-6.10)
[2024-04-13 05:06] LABS: Hemoglobin A1c Greater than 14.0 % (4.0-6.0)
[2024-04-13 05:22] LABS: Cardiac Risk 5.8 (Less than 4.5); Cholesterol 186 mg/dl (< 200 Desired); HDL Cholesterol 32 mg/dL (>60 Neg Risk); Triglycerides 709 mg/dL (Less than 150)
[2024-04-13 05:28] LABS: Anion Gap 18 mmol/L (10-20); BUN (Urea Nitrogen) 13 mg/dL (8.4-25.7); Calc. Creatinine Clearance 105 mL/min (70-130); Calcium 8.8 mg/dL (7.8-10.44); Carbon Dioxide 19 mmol/L (22-29); Chloride 99 mmol/L (98-107); Estimated GFR 64; Glucose 573 mg/dL (70-105); Potassium 3.6 mmol/L (3.5-5.1); Sodium 132 mmol/L (136-145)
[2024-04-13] MEDS: Insulin Lispro 100 UNIT/ML 10 ML VIAL SC SCH ×3 (05:31→23:50)
[2024-04-13] MEDS: Potassium Chloride 20 MEQ TAB PO SCH ×2 (06:14→13:07)
[2024-04-13] MEDS: Insulin Glargine 30 UNITS/0.3 ML VIAL SC SCH ×2 (06:51→21:43)
[2024-04-13] MEDS: Enoxaparin 40 MG (0.4 mL) SYRINGE SC SCH (08:14)
[2024-04-13] MEDS: Febuxostat 40 MG TAB PO SCH (08:35)
[2024-04-13] MEDS: Ezetimibe 10 MG TAB PO SCH (10:05)
[2024-04-13 11:26] LABS: Anion Gap 12 mmol/L (10-20); BUN (Urea Nitrogen) 13 mg/dL (8.4-25.7); Calc. Creatinine Clearance 155 mL/min (70-130); Calcium 8.6 mg/dL (7.8-10.44); Carbon Dioxide 23 mmol/L (22-29); Chloride 104 mmol/L (98-107); Estimated GFR 101; Glucose 260 mg/dL (70-105); Potassium 3.3 mmol/L (3.5-5.1); Sodium 136 mmol/L (136-145)
[2024-04-13 15:41] VITALS: BMI 34.0
[2024-04-13 18:00] LABS: Anion Gap 11 mmol/L (10-20); BUN (Urea Nitrogen) 11 mg/dL (8.4-25.7); Calc. Creatinine Clearance 139 mL/min (70-130); Calcium 8.2 mg/dL (7.8-10.44); Carbon Dioxide 22 mmol/L (22-29); Chloride 106 mmol/L (98-107); Estimated GFR 90; Glucose 345 mg/dL (70-105); Potassium 3.5 mmol/L (3.5-5.1); Sodium 135 mmol/L (136-145)
[2024-04-13] MEDS ORDERED: Insulin Glargine 30 UNITS/0.3 ML VIAL SC SCH (21:00)
[2024-04-13] MEDS: Losartan 25 MG TAB PO SCH (21:23)
[2024-04-14 00:50] LABS: Anion Gap 15 mmol/L (10-20); BUN (Urea Nitrogen) 13 mg/dL (8.4-25.7); Calc. Creatinine Clearance 127 mL/min (70-130); Calcium 8.1 mg/dL (7.8-10.44); Carbon Dioxide 20 mmol/L (22-29); Chloride 103 mmol/L (98-107); Estimated GFR 80; Glucose 608 mg/dL (70-105); Potassium 3.7 mmol/L (3.5-5.1); Sodium 134 mmol/L (136-145)
[2024-04-14 05:21] LABS: #Basophils 0.06 10x3/uL (0.0-0.2); %Basophils 0.7 % (0.0-1.0); %Lymphocytes 30.6 % (21.0-51.0); %Monocytes 7.7 % (0.0-10.0); %Neutrophils 59.5 % (42.0-75.0); Hematocrit 39.6 % (42.0-52.0); Hemoglobin 13.7 g/dL (14.0-18.0); Mean Corpuscular HGB CONC 34.6 g/dL (32.0-36.0); Mean Corpuscular Hemoglobin 30.8 pg (27.0-31.0); Mean Platelet Volume 10.9 fL (7.4-10.4); Platelet Count 173 10x3/uL (130-400); RBC Distribution Width 13.1 % (11.5-14.5); Red Blood Cell (RBC) Count 4.45 mill/uL (4.70-6.10)
[2024-04-14 06:06] LABS: Anion Gap 13 mmol/L (10-20); BUN (Urea Nitrogen) 12 mg/dL (8.4-25.7); Calc. Creatinine Clearance 148 mL/min (70-130); Calcium 8.1 mg/dL (7.8-10.44); Carbon Dioxide 21 mmol/L (22-29); Chloride 107 mmol/L (98-107); Estimated GFR 97; Glucose 366 mg/dL (70-105); Potassium 3.7 mmol/L (3.5-5.1); Sodium 137 mmol/L (136-145)
[2024-04-14] MEDS: Insulin Glargine 30 UNITS/0.3 ML VIAL SC SCH (08:44)
[2024-04-14] MEDS ORDERED: Acetaminophen 325 MG TAB PO PRN (19:46)
[2024-04-14] MEDS: Acetaminophen 325 MG TAB PO SCH (20:02)
[2024-04-14 20:07] LABS: Anion Gap 11 mmol/L (10-20); BUN (Urea Nitrogen) 9 mg/dL (8.4-25.7); Calc. Creatinine Clearance 162 mL/min (70-130); Calcium 7.9 mg/dL (7.8-10.44); Carbon Dioxide 21 mmol/L (22-29); Chloride 107 mmol/L (98-107); Estimated GFR 103; Glucose 297 mg/dL (70-105); Potassium 4.4 mmol/L (3.5-5.1); Sodium 135 mmol/L (136-145)
[2024-04-14 20:15] LABS: Troponin I Less than 0.010 ng/mL (< 0.028)
[2024-04-14] MEDS: Lactated Ringer's 1,000 ML IV SCH (21:41)
[2024-04-14] MEDS: Calcium Carbonate 500 MG ChewTAB PO SCH (21:41)
[2024-04-14] MEDS: Aspirin 325 mg Enteric Coated Tablet PO SCH (21:41)
[2024-04-14] MEDS: Famotidine 20 MG TAB PO SCH (21:41)
[2024-04-15 05:36] LABS: #Basophils 0.05 10x3/uL (0.0-0.2); #Eosinphils Less than 0.03 10x3/uL (0.0-0.7); %Basophils 0.8 % (0.0-1.0); %Eosinophils 0.2 % (0.0-10.0); %Lymphocytes 32.6 % (21.0-51.0); %Monocytes 12.7 % (0.0-10.0); %Neutrophils 52.8 % (42.0-75.0); Hematocrit 39.4 % (42.0-52.0); Hemoglobin 13.7 g/dL (14.0-18.0); Mean Corpuscular HGB CONC 34.8 g/dL (32.0-36.0); Mean Corpuscular Hemoglobin 30.4 pg (27.0-31.0); Mean Corpuscular Volume 87.6 fL (78.0-98.0); Mean Platelet Volume 9.4 fL (7.4-10.4); Platelet Count 243 10x3/uL (130-400); RBC Distribution Width 13.3 % (11.5-14.5)
[2024-04-15] MEDS ORDERED: Aspirin 325 mg Enteric Coated Tablet PO SCH (06:30)
[2024-04-15 08:04] LABS: Anion Gap 11 mmol/L (10-20); BUN (Urea Nitrogen) 9 mg/dL (8.4-25.7); Calc. Creatinine Clearance 186 mL/min (70-130); Carbon Dioxide 23 mmol/L (22-29); Chloride 108 mmol/L (98-107); Estimated GFR 107; Glucose 207 mg/dL (70-105); Potassium 3.2 mmol/L (3.5-5.1); Sodium 139 mmol/L (136-145)
[2024-04-15] MEDS: Potassium Chloride 20 MEQ TAB PO SCH (09:04)
[2024-04-15] MEDS: Insulin Glargine 30 UNITS/0.3 ML VIAL SC SCH (10:24)
[2024-04-16 06:02] LABS: #Basophils 0.05 10x3/uL (0.0-0.2); %Basophils 0.8 % (0.0-1.0); %Eosinophils 1.5 % (0.0-10.0); %Lymphocytes 31.3 % (21.0-51.0); %Neutrophils 52.8 % (42.0-75.0); Hematocrit 39.7 % (42.0-52.0); Hemoglobin 13.7 g/dL (14.0-18.0); Mean Corpuscular HGB CONC 34.5 g/dL (32.0-36.0); Mean Corpuscular Hemoglobin 30.6 pg (27.0-31.0); Mean Corpuscular Volume 88.6 fL (78.0-98.0); Mean Platelet Volume 9.5 fL (7.4-10.4); Platelet Count 259 10x3/uL (130-400); RBC Distribution Width 13.3 % (11.5-14.5); Red Blood Cell (RBC) Count 4.48 mill/uL (4.70-6.10)
[2024-04-16 06:17] LABS: Anion Gap 10 mmol/L (10-20); BUN (Urea Nitrogen) 10 mg/dL (8.4-25.7); Calc. Creatinine Clearance 177 mL/min (70-130); Calcium 8.1 mg/dL (7.8-10.44); Carbon Dioxide 22 mmol/L (22-29); Chloride 109 mmol/L (98-107); Estimated GFR 105; Glucose 249 mg/dL (70-105); Potassium 3.4 mmol/L (3.5-5.1); Sodium 138 mmol/L (136-145)
[2024-04-16] MEDS ORDERED: Insulin Glargine 30 UNITS/0.3 ML VIAL SC SCH (06:57)
[2024-04-16] MEDS: Potassium Chloride 20 MEQ TAB PO SCH (09:50)
[2024-04-16] MEDS: Amlodipine 5 MG TAB PO SCH (09:50)
[2024-04-16] MEDS: metFORMIN 500 MG TAB PO SCH (09:50)
[2024-04-16] MEDS: Famotidine 20 MG TAB PO SCH (09:50)
[2024-04-16] MEDS: Insulin Glargine 30 UNITS/0.3 ML VIAL SC SCH (09:51)
[2024-04-16 12:03] VITALS: BP 135/86; TEMP 98.5
== END 2024-04-16 13:49 | disposition home or self-care (01) | DRG 638 ==
LOC: ERS 23:20 → T4-A 04-13 01:23
PROVIDERS: ADMIT Student in an Organized Health Care Education/Training Program; ATTEND Student in an Organized Health Care Education/Training Program
DX: E11.00 Type 2 diabetes mellitus with hyperosmolarity without nonketotic hyperglycemic-hyperosmolar coma (NKHHC) (principal); E87.20 Acidosis, unspecified; N17.9 Acute kidney failure, unspecified; I10 Essential (primary) hypertension; F41.9 Anxiety disorder, unspecified; E11.65 Type 2 diabetes mellitus with hyperglycemia; F41.8 Other specified anxiety disorders; F32.A Depression, unspecified; R35.89 Other polyuria; R63.1 Polydipsia; K21.9 Gastro-esophageal reflux disease without esophagitis; M10.9 Gout, unspecified; G47.00 Insomnia, unspecified; R07.89 Other chest pain; Z79.899 Other long term (current) drug therapy; Z98.890 Other specified postprocedural states
CPT/HCPCS: 36415; 36416; 71045; 80048; 80061; 83036; 83880; 84443; 84484; 85025; 93005; 93010; 96372; 99285; J1650; J1815; J7120